=== PATIENT | female | born 1995 | race Caucasian/White ===

== ENCOUNTER 2021-05-31 09:05 | Outpatient (CLI) | payer BC, SELFPAY ==
[2021-05-31 10:16] LABS: hCG Titer Quant., Serum 8495 mIU/mL (1-3)
== END 2021-05-31 23:59 | disposition home or self-care (01) ==
PROVIDERS: Referring Provider Obstetrics & Gynecology; Visit Provider Obstetrics & Gynecology
DX: O20.9 Hemorrhage in early pregnancy, unspecified (principal); Z3A.00 Weeks of gestation of pregnancy not specified
CPT/HCPCS: 36415; 84702; 86850; 86900; 86901

== ENCOUNTER 2021-06-02 11:15 | Outpatient (CLI) | payer BC, SELFPAY ==
[2021-06-02 13:28] LABS: hCG Titer Quant., Serum 11227 mIU/mL (1-3)
== END 2021-06-02 23:59 | disposition home or self-care (01) ==
PROVIDERS: Referring Provider Obstetrics & Gynecology; Visit Provider Obstetrics & Gynecology
DX: O20.0 Threatened abortion (principal); Z3A.00 Weeks of gestation of pregnancy not specified
CPT/HCPCS: 36415; 84702

== ENCOUNTER 2021-06-06 15:51 | Outpatient (CLI) | payer BC, SELFPAY ==
[2021-06-09 03:07] LABS: Dilute Prothrombin Time (dPT) 39.6 sec (0.0-47.6); Dilute Russell Viper Venom 29.5 sec (0.0-47.0); PTT-LA 32.4 sec (0.0-51.9); Thrombin Time 15.7 sec (0.0-23.0); dPT Confirm Ratio 0.91 Ratio (0.00-1.34)
[2021-06-09 08:23] LABS: Anti-Cardiolipin Ab, IgA, Qn < 9 APL U/mL (0-11); Anti-Cardiolipin Ab, IgG, Qn < 9 GPL U/mL (0-14); Anti-Cardiolipin Ab, IgM, Qn < 9 MPL U/mL (0-12); Beta-2-Glycoprotein I IgA <9 (0-25); Beta-2-Glycoprotein I IgG <9 (0-20); Beta-2-Glycoprotein I IgM <9 (0-32); Interpretation Comment: (.)
== END 2021-06-06 23:59 | disposition home or self-care (01) ==
PROVIDERS: Referring Provider Obstetrics & Gynecology; Visit Provider Obstetrics & Gynecology
DX: N96 Recurrent pregnancy loss (principal)
CPT/HCPCS: 36415; 86146; 86147

== ENCOUNTER 2021-06-09 17:13 | Outpatient (CLI) | payer BC, SELFPAY ==
--- NOTE | 2021-06-09 17:24 | US_ITS ---
STUDY: FIRST TRIMESTER OBSTETRICAL ULTRASOUND REASON FOR EXAM: Female, 26 years old . Vaginal bleeding. LMP: 05/03/2021. TECHNIQUE: Transvaginal TECHNICAL QUALITY: Adequate. PRIOR ULTRASOUND: None. FINDINGS: There is visualization of a single gestational sac in a normal intrauterine position. The mean sac diameter (MSD) measures 1.5 cm, indicating an estimated gestational age (EGA) of 6 weeks, 2 days. The gestational sac shape is within normal limits. There is a visualized yolk sac. The yolk sac measures 0.44 cm. The placenta is non-visualized. There is visualization of a live embryo. The crown-rump length (CRL) measures 0.8 cm, indicating an estimated gestational age (EGA) of 6 weeks, 5 days. There is demonstrated cardiac activity with a heart rate of 112 bpm. The estimated gestation age (EGA) by LMP is 7 weeks, 2 days. The estimated date of delivery (CHENCHO) by LMP is 01/24/2022. The estimated gestation age (EGA) by US is 6 weeks, 3 days. The estimated date of delivery (CHENCHO) by US is 01/30/2022. The uterus measures 8.9 x 6.9 x 4.5 cm. Is an anechoic structure adjacent to the gestational sac measuring 1.1 x 0.7 x 0.8 cm. There is no demonstrated uterine fibroid. The cervix is closed. The right ovary measures 3.0 x 2.5 x 2.22 cm. There is a hypoechoic 1.5 x 1.8 x 1.6 cm mass. Question complex cyst. There is no visualized right adnexal mass or complex lesion. The left ovary measures 3.3 x 2.1 x 1.2. There is no left ovarian cyst. There is no visualized left adnexal mass or complex lesion. There is no fluid in the cul de sac. US/Transvaginal w/Preg US IMPRESSION: 1. Single live intrauterine at 6 weeks, 3 days. CHENCHO is 01/30/2022. 2. heart rate of 112 bpm. 3. A subchorionic hemorrhage. 4. Complex structure in the right ovary. Resting corpus luteum cyst. Electronically Signed: Wiliam Styles DO at 22:18 EDT Reading Location ID and State: [id number] Tel [phone], Service support ,
== END 2021-06-09 23:59 | disposition home or self-care (01) ==
LOC: US 17:22
PROVIDERS: Referring Provider Obstetrics & Gynecology; Visit Provider Obstetrics & Gynecology
DX: O20.0 Threatened abortion (principal); Z3A.00 Weeks of gestation of pregnancy not specified
CPT/HCPCS: 76817

== ENCOUNTER 2021-06-23 11:06 | Day surgery (SDC) | payer BC, SELFPAY ==
[2021-06-23] VITALS (7 sets, daily range): BP systolic 109–117; BP diastolic 55–71; PULSE 62–82; RESP 14–16; TEMP 36.2–37; O2SAT 94–97; BMI 33.3
--- NOTE | 2021-06-23 09:18 | HP.PCM_ITS ---
History and Physical Date of Admission: 06/23/21 [facility] [id number] [place] [address] [phone] OFFICE VISITDate of Service: 06/21/21 MR#:[id number]: MAITE OWENS [facility]:[id number]:[id number] Provider:Dr. 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 Is patient in pain?: No Allergies No Known Allergies Allergy (Verified 06/21/21 14:46) Medications docosahexaenoic acid 200 mg capsule mg PO 05/31/21 [History Confirmed 06/21/21] Last Menstral Period: 04/19/21 Zika: Zika virus screening: Negative : No PFSH PFSH Surgical History History of tonsillectomy [place] teeth extracted Social History household members: spouse current occupational status: employed current occupation: [employer] Smoking Status: Never smoker alcohol intake: current alcohol intake frequency: a few times a month details: none with substance use type: does not use what type of physical activity do you participate in: walking, running and bic ycling do you feel safe at home: Yes additional social history: - Werner Pregancy History 2 Elective abortions Hx Para 0 Spontaneous abortions 1 Hx # Term Pregnancies Ectopic pregnancies Hx # Pregnancies Multiple births # of living children Past Pregnancies Del. Date Name GA/Weeks Outcome Route Bth Weight Gen Labor Lgth Anesthesia Del Locatn Provider FOB Unknown 08/2020 SAB no intervention HPI NOB LMP 04/19/21 Details: MAITE OWENS is a 26 year old who presents for New OB visit. OB Visit CHENCHO Calculator Estimated Delivery Date Method Current WG Current Estimate 11/05/22 Ultrasound #1 8w 3d Other Estimates 01/24/22 LMP (Certain) 9w 0d Estimated Due Date: 08/18/20 Initial Weight: Not Recorded Date EGA Weight BP Urine Prot Glucose FHR FuHt Pres Dilation Effaced St Visit Note 06/21/21 8w 3d 197 lb 130/82 JV- no heart tones on ultrasound today. However, CRL measured 8 weeks 0days Menstrual History Last Menstral Period: 04/19/21 On hormonal BC at conception: No Antepartum Record Genetic Screening: Congenital Heart Defect: Other, Neural Tube Defect: Other, Hemoglobinopathy Or Carrier: Other, Cystic Fibrosis: Other, Chromosome Abnormality: Other, Robbie-Sachs: Other, Hemophilia: Other, Intellectual Disability/Autism: Other, Recurrent Loss/Stillbirth: Other, Other Structural Defect: Partner (cousin cleft lip;FOB missing pectoral muscle), Other Genetic Disease: Other and Maternal Metabolic Disorder: Other Infection History: Live with someone with TB or Exposed to TB: No, Patient or Partner has history of Genital Herpes: No, Rash or Viral illness since last mentrual period: No, Prior GBS-Infected child: No, History of STD: No, HIV Infection: No, History of Hepatitis: No, Recent travel outside of [place]: No, Concern for hepatitis exposure: No and Varicella immune: Yes (immune) Comments: covid vaccine complete Medical History Medical History: Positive: Pulmonary (e.g.,TB,Asthma) (asthma as child. No meds) and Operations/hospitalizations (tonsils) and Negative: Diabetes, Hypertension, Heart disease, Auto-immune disorder, Kidney disease/UTI, Neurologic/epilepsy, Psychiatric, Depression/ depression, Hepatitis/liver disease, Varicosities/phlebitis, Thyroid dysfunction, Trauma/domestic violence, History of blood transfusions, D (Rh) Sensitized, Seasonal allergies, Drug/latex allergies/reactions, Breast, Circle Beveler surgery, Anesthetic complications, History of abnormal pap, Uterine anomaly/choco, Infertility, Anti-retroviral treatment and Relevant family history ACOG First Trimester First Trimester: Discussed ROS Const Reports system reviewed and no additional complaints, except as documented, Reports fatigue and Denies fever(s) Eyes Reports system reviewed and no additional complaints, except as documented ENT Reports system reviewed and no additional complaints, except as documented Card Denies chest pain and Denies dyspnea Resp Reports system reviewed and no additional complaints, except as documented, Denies cough and Denies dyspnea GI Denies abdominal pain and Reports nausea Reports system reviewed and no additional complaints, except as documented Musc Reports system reviewed and no additional complaints, except as documented Skin/Breast Reports system reviewed and no additional complaints, except as documented Neuro Yes system reviewed and no additional complaints, except as documented Psych Reports system reviewed and no additional complaints, except as documented Endo Reports system reviewed and no additional complaints, except as documented and Reports fatigue Exam Const General: healthy appearing, comfortable and no acute distress Orientation: alert [facility] Head: normal to inspection, normocephalic and atraumatic Ears: hearing grossly normal bilaterally and external ears normal Nose: external nose normal and nares normal Mouth: oral mucosae normal Teeth and gingiva: dentition normal Eyes General: appearance normal, both eyes and all related structures Neck Neck: normal visual inspection, no lymphadenopathy and supple Thyroid: thyroid normal Resp Effort & Inspection: normal respiratory effort GI Inspection: normal to inspection Palpation: soft and no hepatosplenomegaly General: bladder normal to palpation External Female Exam: normal external appearance and normal appearance of the urethra Urethra: normal appearance of the urethra Speculum Exam - Vagina: normal appearance of the vagina and normal vaginal discharge Speculum Exam - Cervix: normal appearance of the cervix Bimanual Exam- Vagina & Uterus: normal bimanual exam, bladder normal to palpation, non-tender and other Bimanual Exam- Adnexa, other: non-tender Skin General: no rashes or lesions noted Neuro Motor: muscle tone normal throughout and no movement abnormalities noted Extrem General: normal to inspection and full ROM Supplemental Info ACOG book given and patient encouraged to read about nutrition, exercise, weight gain, and food avoidance in . Coding Level of Care Code Off vis,est,level 4 Diagnoses Supervision of high risk , antepartum O09.90 COVID-19 vaccine series completed Z92.29 Z34.90 Subchorionic hematoma O41.8X10; O46.8X1 Fetus number: single or unspecified fetus Trimester: first trimester Threatened O20.0 Missed O02.1 Assessment and Plan Assessment and Plan (1) Supervision of high risk , antepartum: Status: Acute Comment: Grav 2/0 CHENCHO 01/28/22 Spouse:Werner (2) COVID-19 vaccine series completed: Status: Acute (3) : Status: Acute Comment: Discussed carrier and genetic screen (4) Subchorionic hematoma: Status: Acute Qualifiers: Fetus number: single or unspecified fetus Trimester: first trimester Qualified Code(s): O41.8X10 - Other specified disorders of amniotic fluid and membranes, first trimester, not applicable or unspecified; O46.8X1 - Other antepartum hemorrhage, first trimester Comment: Complex 3 x 1 cm; 06/12 passed clot and brown spotting. (5) Threatened : Status: Acute Comment: pole with heartbeat seen but large clot present, repeat ultrasound with formal scan at end of week. APL panel ordered due to history of previous miscarriage also. Bleeding precautions reviewed. APL neg; 06/12 passed clot. Formal US with live IUP 6w5d (6) Missed : Status: Acute Plan - Dr. Ashley Greene DO: pt requesting D&C sunday with anora testing, ultrasound prior to d&C and APL panel at time of surgery. will submit request and call patient with details. UPDATE- I have seen the patient and performed any clinically relevant updates to the history and physical exam. Ashley Greene DO
--- NOTE | 2021-06-23 09:45 | US_ITS ---
STUDY: INTRAOPERATIVE ULTRASOUND GUIDANCE. REASON FOR EXAM: Female, 26 years old. NEEDED IN OR -- D and C -- 8wk missed TECHNIQUE: Intraoperative guidance provided for confirmation of retained products of conception. COMPARISON: None. FINDINGS: No significant residual is seen. US/Intraoperative Ultrasound IMPRESSION: Intraoperative guidance for confirmation of retained products of conception. Electronically Signed: Manjinder Villafana MD at 14:30 EDT ,
[2021-06-23] MEDS: Lactated Ringers 1,000 ML 15 ML IV (11:44)
[2021-06-23] MEDS: Doxycycline 100 MG CAPSULE PO (12:12)
[2021-06-23 12:19] LABS: Hematocrit 41.3 % (37-47); Hemoglobin 14.5 g/dL (12.0-15.0); Mean Corp Hgb Conc 35.1 g/dL (32-36); Mean Corpuscular Volume 88.2 fL (81-99); Mean Platelet Vol. 8.3 fl (6.2-12.0); Platelet Count 257 K/mm3 (150-450); RBC Distribution Width CV 12.7 % (11.6-14.6); RBC Distribution Width SD 41.1 fl (35.1-43.9); Red Blood Count 4.68 M/mm3 (4.2-5.4); White Blood Count 8.5 K/mm3 (4.4-11.0)
--- NOTE | 2021-06-23 12:30 | POC_PTH ---
PATIENT: MAITE OWENS LOC: [facility] [place] U#:[id number] AGE/SX: 26/F ROOM: RE06/23/[address]: Dr. Ashley Greene DO : 1995 BED: DIS: 06/23/2021 SPEC #: [id number] RECD: 06/23/21 13:37 STATUS: MARSHA GERARDYunier #: [id number] ERON: 06/23/21 12:[address]: Ashley Greene DEPT: SURGICAL PATHOLOGY RECD BY: Fabiola Nick ENTERED: 06/23/21 14:01 SP TYPE: PROD CONC OTHR DR: No Primary Care Phys Tissues: Product of conception, NOS Procedures: Surgery Specimen Level IV HEADER OPERATION: Dilation and curettage, suction, Anora and APL testing PRE-OP DIAGNOSIS: Missed TISSUE SUBMITTED: Products of conception MICROSCOPIC DIAGNOSIS Products of conception: [place]id[place], gestational endometrium and immature chorionic villi (products of conception). SJ:rg 06/24/2021 COMMENT Results of Anora studies will be reported as an addendum. MICROSCOPIC DESCRIPTION Slides are reviewed. GROSS DESCRIPTION Received fresh without formalin is one container labeled with the patient's name and designated products of conception. The specimen consists of multiple irregular fragments of pink-lyle soft tissue that in aggregate measure 5 x 6 x 1 cm. No tissue is identified. Skein Yarn Dyer Helper tissue is submitted in three cassettes. A portion of tissue is submitted for Anora studies. / SJ:rg 06/23/2021 TC:5 CPT: 39289
--- NOTE | 2021-06-23 13:27 | PCM.DC ---
Discharge Instructions Diet Discharge Diet: No restrictions Activity Discharge Activity: Return to Normal Activity, May Shower and May Take a Tub Bath (after 1 week) May resume sexual activity in: 1-2 weeks Weight Bearing Status: Weight bearing as tolerated Lifting Restrictions: none Dressing / Incision Call your doctor if you observe: Fever of 101 or Higher, Using more than 1 pad per hour, Shortness of breath and Uncontrolled pain Follow Up Care Please Follow Up With: Ashley Greene DO When: Call [phone] to schedule appointment. Test Results: Test results from this visit will be discussed in further detail at your follow-up appointment, if applicable. Discharge Plan Admission Primary Reason for Your Visit: suction dilation and curettage Attending Provider: Ashley Greene Primary Care Provider: Care Physician,Kayla Primary Discharge Orders/Prescriptions Prescriptions: New oxycodone-acetaminophen [Percocet] 5-325 mg tablet 1 tab PO Q6H PRN (Reason: pain) 3 Days Qty: 10 RF: 0 ibuprofen 600 mg tablet 600 mg PO Q6H PRN (Reason: pain (scale score 4-6)) 7 Days Qty: 28 RF: 0 Referrals / Follow Up: Care Physician,No Primary [Primary Care Provider] - Disposition Disposition (needs filled in before D/C Order can be placed): Home, Self Care
--- NOTE | 2021-06-23 13:31 | PCM.OP.BLANK ---
Problems Associated Problem List Diagnoses (1) Missed : Operative Report Date of Procedure: 06/23/21 Pre-operative diagnosis: missed at 8 weeks gestation Pot-operative diagnosis : same Procedure: suction dilation and curettage Surgeon: Dr. Ashley Greene DO Specimen: products of conception Anesthesia: MAC EBL: 50cc Complications: none Details of the procedure Patient was prepped and draped in a normal sterile fashion under MAC anesthesia. A weighted speculum was placed in the vagina and the anterior lip of the cervix was grasped with a single-tooth tenaculum. A Uterine sounded to 11 cm. An 11 suction device was used to remove the majority of the products of conception under ultrasound guidance. Next, a sharp Curettage was performed and all specimens were sent to pathology. All instruments were removed from the vagina and excellent hemostasis was noted. Patient was awoken and taken to recovery in stable condition. Multi Select Codes Urinary/Genital Urinary/Genital CPT Codes: 19624 Non-ob D&C (Suction dilation and curettage )
[2021-06-30 07:12] LABS: Pathology Specimen OB SEE PATHOLOGY REPORT
== END 2021-06-23 23:59 | disposition home or self-care (01) ==
LOC: SDC 11:07 → AC 11:10
PROVIDERS: Referring Provider Obstetrics & Gynecology; Visit Provider Obstetrics & Gynecology
PROC: (CPT 59820; principal; 2021-06-23 12:15)
DX: O02.1 Missed abortion (principal); J45.909 Unspecified asthma, uncomplicated; Z3A.01 Less than 8 weeks gestation of pregnancy
CPT/HCPCS: 59820; 01965; 76998; 85027; 86850; 86900; 86901; 88305; J7120; J2405

== ENCOUNTER 2021-06-28 18:24 | Outpatient (CLI) | payer OTHER, SELFPAY ==
--- NOTE | 2021-06-28 18:33 | US_ITS ---
STUDY: ULTRASOUND OF THE FEMALE PELVIS - COMPLETE REASON FOR EXAM: Female, 26 years old. RECENT MISCARRIAGE AND D AND C LMP: 10/17/2021. TECHNIQUE: Transvaginal TECHNICAL QUALITY: Adequate. COMPARISON: None. FINDINGS: The uterus is anteverted and is in a midline position. The uterus measures 8.4 cm x 5.4 cm x 4.2 cm. Normal uterine cervix. The endometrium measures 7 mm in thickness, and is hyperechoic. On the right side of the endometrium, there is a 1.6 x 1.4 cm x 1.3 cm heterogeneous mixed echogenicity. Small cysts are seen within the. This may represent residual products of conception. There is no demonstrated myometrial mass. I.U.D. - The patient does not have an I.U.D. The right ovary is visualized. The right ovary measures 4 cm x 2.7 cm x 1.6 cm. There is a 1.5 cm x 1.6 x 1.2 cm follicle. There is no visualized right adnexal mass or complex lesion. There is normal arterial and normal venous vascularity. The left ovary is visualized. The left ovary measures 1.9 cm x 1.9 cm x 1.1 cm. There is no left ovarian cyst or ovarian mass. There is no visualized left adnexal mass or complex lesion. There is normal arterial and normal venous vascularity. There is minimal fluid in the cul-de-sac. US/Transvaginal Non- IMPRESSION: 1.6 cm x 1.4 cm x 1.3 cm heterogeneous mixed echogenicity seen in the right side of the endometrium. This may represent a small amount of residual retained products of conception. Small follicle in the right ovary. Electronically Signed: Manjinder Villafana MD at 9:16 EDT ,
== END 2021-06-28 23:59 | disposition home or self-care (01) ==
LOC: OPUS 18:28
PROVIDERS: Visit Provider Obstetrics & Gynecology
DX: O20.0 Threatened abortion (principal); Z3A.00 Weeks of gestation of pregnancy not specified
CPT/HCPCS: 76830

== ENCOUNTER 2021-07-05 09:04 | Outpatient (CLI) | payer OTHER, SELFPAY ==
[2021-07-05 10:15] LABS: hCG Titer Quant., Serum 243 mIU/mL (1-3)
== END 2021-07-05 23:59 | disposition home or self-care (01) ==
LOC: PAVLAB 09:05
PROVIDERS: Referring Provider Obstetrics & Gynecology; Visit Provider Obstetrics & Gynecology
DX: O20.0 Threatened abortion (principal); Z3A.00 Weeks of gestation of pregnancy not specified
CPT/HCPCS: 36415; 84702

== ENCOUNTER 2021-07-13 08:12 | Outpatient (CLI) | payer OTHER, SELFPAY ==
[2021-07-13 08:53] LABS: hCG Titer Quant., Serum 40 mIU/mL (1-3)
[2021-07-13 08:59] LABS: Thyroid Stim Hormone (TSH) 1.57 uIU/mL (0.358-3.74)
== END 2021-07-13 23:59 | disposition home or self-care (01) ==
LOC: PAVLAB 08:13
PROVIDERS: Referring Provider Obstetrics & Gynecology; Visit Provider Obstetrics & Gynecology
DX: Z13.29 Encounter for screening for other suspected endocrine disorder (principal)
CPT/HCPCS: 36415; 84443; 84702

== ENCOUNTER → 2021-07-27 | Outpatient (CLI) | payer OTHER, SELFPAY ==
[2021-07-27 09:13] LABS: hCG Titer Quant., Serum 9 mIU/mL (1-3)
== END | disposition home or self-care (01) ==
LOC: PAVLAB 08:21
PROVIDERS: Referring Provider Obstetrics & Gynecology; Visit Provider Obstetrics & Gynecology
DX: O02.1 Missed abortion (principal)
CPT/HCPCS: 36415; 84702

== ENCOUNTER → 2021-10-03 | Outpatient (CLI) | payer OTHER, SELFPAY ==
[2021-10-03 13:36] LABS: hCG Titer Quant., Serum 33 mIU/mL (1-3)
== END | disposition home or self-care (01) ==
LOC: PAVLAB 12:41
PROVIDERS: Obstetrics & Gynecology; Referring Provider Nurse Practitioner Women's Health; Visit Provider Nurse Practitioner Women's Health
DX: O36.80X0 Pregnancy with inconclusive fetal viability, not applicable or unspecified (principal); Z3A.00 Weeks of gestation of pregnancy not specified
CPT/HCPCS: 36415; 84702

== ENCOUNTER → 2021-10-05 | Outpatient (CLI) | payer OTHER, SELFPAY ==
[2021-10-05 13:40] LABS: hCG Titer Quant., Serum 73 mIU/mL (1-3)
== END | disposition home or self-care (01) ==
LOC: PAVLAB 12:38
PROVIDERS: Referring Provider Obstetrics & Gynecology; Visit Provider Obstetrics & Gynecology
DX: O20.0 Threatened abortion (principal); Z3A.00 Weeks of gestation of pregnancy not specified
CPT/HCPCS: 36415; 84702

== ENCOUNTER → 2021-10-07 | Outpatient (CLI) | payer OTHER, SELFPAY ==
[2021-10-07 14:16] LABS: hCG Titer Quant., Serum 56 mIU/mL (1-3)
== END | disposition home or self-care (01) ==
LOC: LAB 13:18
PROVIDERS: Visit Provider Obstetrics & Gynecology
DX: O20.0 Threatened abortion (principal); Z3A.00 Weeks of gestation of pregnancy not specified
CPT/HCPCS: 36415; 84702

== ENCOUNTER → 2021-10-10 | Outpatient (CLI) | payer OTHER, SELFPAY ==
[2021-10-10 09:22] LABS: hCG Titer Quant., Serum 95 mIU/mL (1-3)
[2021-10-13 07:08] LABS: Dilute Russell Viper Venom 31.4 sec (0.0-47.0); PTT-LA 30.2 sec (0.0-51.9); Thrombin Time 17.8 sec (0.0-23.0); dPT Confirm Ratio 0.99 Ratio (0.00-1.34)
[2021-10-13 15:05] LABS: Anti-Cardiolipin Ab, IgA, Qn < 9 APL U/mL (0-11); Anti-Cardiolipin Ab, IgG, Qn < 9 GPL U/mL (0-14); Anti-Cardiolipin Ab, IgM, Qn < 9 MPL U/mL (0-12); Beta-2-Glycoprotein I IgA <9 (0-25); Beta-2-Glycoprotein I IgG <9 (0-20); Beta-2-Glycoprotein I IgM <9 (0-32); Interpretation Comment: (.)
== END | disposition home or self-care (01) ==
LOC: PAVLAB 08:21
PROVIDERS: Referring Provider Obstetrics & Gynecology; Visit Provider Obstetrics & Gynecology
DX: O20.0 Threatened abortion (principal); Z3A.00 Weeks of gestation of pregnancy not specified
CPT/HCPCS: 36415; 84702; 86146; 86147

== ENCOUNTER → 2021-11-18 | Outpatient (CLI) | payer OTHER, SELFPAY ==
[2021-11-18 16:46] LABS: hCG Titer Quant., Serum 178 mIU/mL (1-3)
== END | disposition home or self-care (01) ==
PROVIDERS: Visit Provider Obstetrics & Gynecology
DX: O20.0 Threatened abortion (principal); Z3A.00 Weeks of gestation of pregnancy not specified
CPT/HCPCS: 36415; 84702

== ENCOUNTER → 2021-11-21 | Outpatient (CLI) | payer OTHER, SELFPAY ==
[2021-11-21 07:56] LABS: hCG Titer Quant., Serum 123 mIU/mL (1-3)
== END | disposition home or self-care (01) ==
LOC: LAB 07:16
PROVIDERS: Referring Provider Obstetrics & Gynecology; Visit Provider Obstetrics & Gynecology
DX: O20.0 Threatened abortion (principal); Z3A.00 Weeks of gestation of pregnancy not specified
CPT/HCPCS: 36415; 84702

== ENCOUNTER 2021-11-23 16:27 | Emergency (ER) | payer OTHER, SELFPAY ==
[2021-11-23 16:29] VITALS: BP 108/73; PULSE 76; RESP 18; TEMP 36.6; O2SAT 94; BMI 32.9
--- NOTE | 2021-11-23 16:49 | ED.VIS.FEGU ---
HPI HPI - Female History of Present Illness Chief Complaint: Informant: patient Narrative Narrative: Patient presents for methotrexate treatment. This is a G4, P0 female. They have been following hormones as an outpatient. They were not rising and in fact starting to follow-up. Ultrasound was done that showed suspicion for ectopic. In light of her decreasing quant it was recommended she get methotrexate treatment. She has been following with her OB physician. She has not been having any pain fevers abdominal pain back pain lightheadedness or any other symptoms. There has been no vaginal bleeding. PFSH PFSH Medical History Alcohol use Asthma Non-smoker Home Medications prenat.vits,wilbur,[id number] 1 tab PO DAILY 10/14/21 [History Last Taken Unknown] Allergy/AdvReac Type Severity Reaction Status Date / Time codeine AdvReac HALLUCINATI Verified 11/23/21 16:38 ONS Surgical History History of tonsillectomy [place] teeth extracted Social History household members: spouse current occupational status: employed current occupation: [employer] Smoking Status: Never smoker alcohol intake: current alcohol intake frequency: a few times a month details: none with substance use type: does not use what type of physical activity do you participate in: walking, running and bicycling do you feel safe at home: Yes additional social history: - Werner VERONICA ROS ED Constitutional Constitutional ED: Denies chills or fever(s) ENT ENT ED: Denies sore throat Cardiovascular Cardiovascular: Denies chest pain or palpitations Respiratory/Chest Respiratory/Chest: Denies cough Gastrointestinal Gastrointestinal: Denies abdominal pain, nausea or vomiting Genitourinary Genitourinary ED: Reports other Details: See history of present illness peer ; Denies dysuria, hematuria or urinary frequency Musculoskeletal Musculoskeletal: Reports other Details: No back pain Integumentary Denies rash Neurologic Neurologic: Denies weakness Endocrine Endocrinology: Denies polydipsia or polyuria Hematologic/Lymphatic Hematologic/Lymphatic: Denies easy bleeding or easy bruising EXAM Physical Exam Const Vital Signs: 11/23/21 16:29 Temperature 98 F Temperature Source Temporal Pulse Rate 76 Respiratory Rate 18 Blood Pressure 108/73 Blood Pressure Mean 84 Pulse Ox 94 Oxygen Delivery Method Room Air Positive well nourished and well developed General Appearance ED: well developed HEENT Reports moist mucous membranes Eyes General Eye ED: Negative for scleral icterus Neck no lymphadenopathy Chest Wall inspection of chest normal Resp normal respiratory effort and clear to auscultation bilaterally Cardio regular rate and regular rhythm GI normal to inspection, nondistended, normoactive bowel sounds, soft to palpation, non-tender, non-distended and no masses Back/Spine no CVA tenderness Extremity normal to inspection General Extremety ED: Negative for edema or tenderness General Extremity: Negative for edema Neuro Sensorium / Orientation: alert Psych mental status grossly normal Skin no rashes or lesions noted General Skin Exam: Negative for jaundice MDM MDM MDM Narrative Medical decision making narrative: I discussed the case with Dr. Raman. She has been seeing and following this patient. She recommended methotrexate. We will arrange this. We will do a comprehensive metabolic panel to make sure there are not marked abnormalities. She has had normal coagulation studies which hint of no significant liver disease. I did talk with the patient about reasons to return. Just because we are treating with methotrexate it is not 100% successful. She could still have rupture. We went over the symptoms. Her OB will follow her up with quant's. Liver function test show no marked abnormalities. Electrolytes look normal. Per protocol, I gave 2 IM shots of the patient's methotrexate. We did half of the in each right upper outer quadrant of the buttocks. Alcohol cleanse, insertion drawback and injection. She tolerated well. Follow-up explained to the patient. Lab Data Labs: Laboratory Results - last 24 hr 11/23/21 17:15 Sodium 138 Potassium 3.8 Chloride 108 H Carbon Dioxide 24.0 Anion Gap 6 BUN 6 L Creatinine 0.70 Estim Creat Clear Calc 103.32 Est GFR (MDRD) Af Amer 128 Est GFR (MDRD) Non-Af 106 BUN/Creatinine Ratio 8.6 L Glucose 81 Calcium 9.1 Total Bilirubin 0.50 AST 10 L ALT 20 Alkaline Phosphatase 49 Total Protein 7.1 Albumin 3.8 Globulin 3.3 Albumin/Globulin Ratio 1.2 Discharge Plan Triage Chief Complaint: Other Complaint: Female C/O ED Provider: Saran Kaufman Dx/Rx/DC Orders Clinical Impression: Ectopic Instructions: ED Methotrexate for Ectopic ... Prescriptions: No Action prenat.vits,wilbur,[id number]-[id number] Tablet 1 tab PO DAILY Primary Care Provider: Care Physician,No Primary Referrals: Ashley Greene DO [Med Staff - Active Staff] - As Needed Care Physician,No Primary [Primary Care Provider] - Disposition Disposition: Home, Self Care Discharge Date/Time: 11/23/21 18:40
[2021-11-23 17:47] LABS: ALB/GLOB Ratio 1.2 RATIO (0.9-2.4); AST(SGOT) 10 U/L (15-37); Alanine Aminotransfer ALT/SGPT 20 U/L (13-56); Albumin, Serum 3.8 g/dL (3.2-5.0); Alkaline Phosphatase 49 U/L (45-117); Anion Gap 6 (5-15); BUN 6 mg/dL (7-18); BUN/Creat Ratio 8.6 RATIO (10-20); Calcium,Total 9.1 mg/dL (8.5-10.1); Chloride 108 mmol/L (98-107); EST Glomerular Filtration Rate 106 mL/min (>60); Est Glom Filt Rate - Afr Amer 128 mL/min (>60); Estimated Creatinine Clearance 103.32 ml/min; Globulin 3.3 g/dL (2.2-4.2); Glucose 81 mg/dL (74-106); Potassium 3.8 mmol/L (3.5-5.1); Protein, Total 7.1 g/dL (6.4-8.2); Sodium Level 138 mmol/L (136-145)
== END 2021-11-23 18:40 | disposition home or self-care (01) ==
PROVIDERS: Emergency Provider Emergency Medicine; Visit Provider Emergency Medicine
DX: O00.90 Unspecified ectopic pregnancy without intrauterine pregnancy (principal)
CPT/HCPCS: 80053; 99282; J9250

== ENCOUNTER → 2021-11-23 | Outpatient (CLI) | payer OTHER, SELFPAY ==
--- NOTE | 2021-11-23 14:30 | US_ITS ---
STUDY: FIRST TRIMESTER OBSTETRICAL ULTRASOUND REASON FOR EXAM: Female, 26 years old viability LMP: 10/02/2021. TECHNIQUE: Transabdominal and Transvaginal TECHNICAL QUALITY: Adequate. PRIOR ULTRASOUND: None. FINDINGS: There is no demonstrated intrauterine gestational sac. There is no demonstrated yolk sac. The placenta is non-visualized. There is no demonstrated embryo ( pole). The estimated gestation age (EGA) by LMP is 7 weeks, 3 days. The estimated date of delivery (CHENCHO) by LMP is 07/09/2022. The uterus measures 9.77 x 5.3 cm x 4 centimeters. No intrauterine gestation is seen. There is a 1.1 BETHANY by 1.47 x 2.5 cm solid nodular density in the right adnexa with fluid surrounding it. This may represent a possible ectopic . There is no demonstrated uterine fibroid. The cervix is closed. The right ovary measures 5 cm x 1.9 cm x 2.4 centimeters. There is no right ovarian cyst. There is no visualized right adnexal mass or complex lesion. The left ovary measures 3.1 cm x 2.5 cm x 1.6 cm. There is no left ovarian cyst. There is no visualized left adnexal mass or complex lesion. There is minimal fluid in the cul de sac. US/Transvaginal w/Preg US IMPRESSION: No intrauterine gestation is seen. Findings suggestive of a right-sided ectopic with fluid in the cul-de-sac. Correlation with serial beta hCGs recommended. Electronically Signed: Manjinder Villafana MD at 15:52 EDT ,
== END | disposition home or self-care (01) ==
PROVIDERS: Visit Provider Obstetrics & Gynecology
DX: O20.0 Threatened abortion (principal); Z3A.00 Weeks of gestation of pregnancy not specified
CPT/HCPCS: 76817

== ENCOUNTER → 2021-11-27 | Outpatient (CLI) | payer OTHER, SELFPAY ==
[2021-11-27 17:23] LABS: hCG Titer Quant., Serum 49 mIU/mL (1-3)
== END | disposition home or self-care (01) ==
LOC: LAB 16:01
PROVIDERS: Visit Provider Obstetrics & Gynecology
DX: O00.90 Unspecified ectopic pregnancy without intrauterine pregnancy (principal)
CPT/HCPCS: 36415; 84702

== ENCOUNTER → 2021-11-30 | Outpatient (CLI) | payer OTHER, SELFPAY ==
[2021-11-30 16:00] LABS: hCG Titer Quant., Serum 29 mIU/mL (1-3)
== END | disposition home or self-care (01) ==
LOC: PAVLAB 14:47
PROVIDERS: Referring Provider Obstetrics & Gynecology; Visit Provider Obstetrics & Gynecology
DX: O00.90 Unspecified ectopic pregnancy without intrauterine pregnancy (principal)
CPT/HCPCS: 36415; 84702

== ENCOUNTER → 2021-12-09 | Outpatient (CLI) | payer OTHER, SELFPAY ==
[2021-12-09 17:40] LABS: hCG Titer Quant., Serum 8 mIU/mL (1-3)
== END | disposition home or self-care (01) ==
PROVIDERS: Referring Provider Obstetrics & Gynecology; Visit Provider Obstetrics & Gynecology
DX: O09.90 Supervision of high risk pregnancy, unspecified, unspecified trimester (principal); Z3A.00 Weeks of gestation of pregnancy not specified
CPT/HCPCS: 36415; 84702

== ENCOUNTER → 2022-01-11 | Outpatient (CLI) | payer BC, SELFPAY ==
--- NOTE | 2022-01-11 12:13 | RAD_ITS ---
STUDY: HSG REASON FOR EXAM: Female, 26 years old. Fertility testing RADIATION DOSAGE (If Supplied By Facility): CTDIvol = ( ) mGy, DLP = ( ) mGycm. Individualized dose optimization techniques were used for this CT.? FLUOROSCOPY TIME (if supplied): ( 1:12 ) minutes/seconds TECHNIQUE: Procedure performed by Dr. Greene, fluoroscopy provided by Dr. Yoo COMPARISON: None. FINDINGS: Fluoroscopy provided as Dr. NOVAK performed an HSG. Contrast was injected into the uterus in a retrograde manner and there was fluoroscopic evaluation of the endometrial cavity and fallopian tubes. There is no suspicious soft tissue mass impinging upon the endometrial canal. The borders are smooth and normal in appearance. There is free flow of contrast through both fallopian tubes with spillage of contrast into the pelvis. No obstruction or stricture or mass lesion. RAD/Salpingogram IMPRESSION: Normal HSG. Electronically Signed: Milo Yoo MD at 13:35 EDT ,
--- NOTE | 2022-01-11 13:15 | OP.PCM_ITS ---
Operative Report Preop diagnosis: Infertility Postop diagnosis: Infertility, bilateral tubal patency Procedure: Hysterosalpingogram Surgeon: Ashley Greene Do Implantable devices: None Complications: None Findings: Bilateral tubal patency and normal uterine cavity Operative details: Patient was taken to the x-ray room and was placed on the x- ray table and was in the dorsal lithotomy position. Speculum was placed in the vagina and the cervix prepped with Betadine and the HSG catheter was easily introduced into the uterus and speculum removed. Radiologist was brought in and while pushing radiopaque dye into the uterus via the HSG catheter the radiologist took multiple images and views and confirmed bilateral tubal patency seen. No gross uterine filling defects or abnormalities were seen. All instruments removed from the vagina and the uterus without complication. Patient tolerated the procedure well. Multi Select Codes Urinary/Genital Urinary/Genital CPT Codes: 61073 HSG/SIS
== END | disposition home or self-care (01) ==
PROVIDERS: Referring Provider Obstetrics & Gynecology; Visit Provider Obstetrics & Gynecology
DX: Z31.41 Encounter for fertility testing (principal)
CPT/HCPCS: 58340; 74740; Q9967

== ENCOUNTER → 2022-04-04 | Outpatient (CLI) | payer BC, SELFPAY ==
[2022-04-04 17:41] LABS: hCG Titer Quant., Serum 390 mIU/mL (1-3)
== END | disposition home or self-care (01) ==
LOC: LAB 16:20
PROVIDERS: Referring Provider Nurse Practitioner Women's Health; Visit Provider Nurse Practitioner Women's Health
DX: N91.2 Amenorrhea, unspecified (principal)
CPT/HCPCS: 84702

== ENCOUNTER → 2022-04-06 | Outpatient (CLI) | payer BC, SELFPAY ==
[2022-04-06 18:02] LABS: hCG Titer Quant., Serum 956 mIU/mL (1-3)
== END | disposition home or self-care (01) ==
LOC: LAB 16:26
PROVIDERS: Visit Provider Obstetrics & Gynecology
DX: O20.0 Threatened abortion (principal); Z3A.00 Weeks of gestation of pregnancy not specified
CPT/HCPCS: 84702

== ENCOUNTER → 2022-04-24 | Outpatient (CLI) | payer BC, SELFPAY ==
--- NOTE | 2022-04-24 07:52 | US_ITS ---
STUDY: FIRST TRIMESTER OBSTETRICAL ULTRASOUND REASON FOR EXAM: Female, 27 years old viability LMP: 03/03/2022. TECHNIQUE: Transvaginal TECHNICAL QUALITY: Adequate. PRIOR ULTRASOUND: None. FINDINGS: There is visualization of a single gestational sac in a normal intrauterine position. The mean sac diameter (MSD) measures 2.8 cm, indicating an estimated gestational age (EGA) of 7 weeks, 6 days. The gestational sac shape is within normal limits. There is a visualized yolk sac. The yolk sac measures 4 mm. The placenta is non-visualized. There is visualization of a live embryo. The crown-rump length (CRL) measures 8 mm, indicating an estimated gestational age (EGA) of 6 weeks, 6 days. There is demonstrated cardiac activity with a heart rate of 140 bpm. The estimated gestation age (EGA) by LMP is 7 weeks, 3 days. The estimated date of delivery (CHENCHO) by LMP is 12/08/2022. The estimated gestation age (EGA) by US is 7 weeks, 3 days. The estimated date of delivery (CHENCHO) by US is 12/08/2022. The uterus measures 9.8 cm x 6.8 cm x 5.2 cm. There is no demonstrated uterine fibroid. The cervix is closed. The right ovary measures 4 cm x 2. cm x 1.3 cm. There is no right ovarian cyst. There is no visualized right adnexal mass or complex lesion. The left ovary measures was not visualized due to overlying bowel gas.. There is minimal fluid in the cul de sac. US/Transvaginal w/Preg US IMPRESSION: Single live intrauterine gestation with a mean gestational age of 7 weeks and 3 days. Minimal amount of free fluid is seen in the cul-de-sac. Electronically Signed: Manjinder Villafana MD at 15:20 EST ,
== END | disposition home or self-care (01) ==
LOC: US 07:50
PROVIDERS: Visit Provider Obstetrics & Gynecology
DX: Z34.90 Encounter for supervision of normal pregnancy, unspecified, unspecified trimester (principal)
CPT/HCPCS: 76817

== ENCOUNTER → 2022-05-09 | Outpatient (CLI) | payer BC, SELFPAY ==
[2022-05-12 11:09] LABS: Chlamydia By Nucleic Acid AMP Negative (Negative)
[2022-05-12 17:20] LABS: Gonococcus By Nucleic Acid AMP Negative (Negative)
== END | disposition home or self-care (01) ==
PROVIDERS: Visit Provider Obstetrics & Gynecology
DX: Z34.90 Encounter for supervision of normal pregnancy, unspecified, unspecified trimester (principal)
CPT/HCPCS: 87086; 87088; 87491; 87591

== ENCOUNTER 2022-05-25 13:50 | Outpatient (CLI) | payer BC, SELFPAY ==
[2022-05-25 14:18] LABS: Absolute Lymphocyte Count 2.94 X10^3/uL (0.83-4.51); Absolute Neutrophil Count 7.2 X10^3/uL (2.0-7.7); Basophil# 0.05 X10^3/uL; Basophil% 0.5 % (0-1); Eosinophil# 0.08 X10^3/uL; Eosinophils% 0.7 % (0-5); Hematocrit 41.7 % (37-47); Hemoglobin 14.4 g/dL (12.0-15.0); Lymphocyte # 2.94 X10^3/ul (0.83-4.51); Lymphocyte % 26.8 % (19-41); Mean Corp Hgb Conc 34.5 g/dL (32-36); Mean Corpuscular Hgb 30.4 pg (27.0-32.0); Mean Platelet Vol. 8.3 fl (6.2-12.0); Monocyte# 0.66 X10^3/uL; NRBC Flagged by Analyzer 0 % (0-5); Neutrophil # 7.22 X10^3/uL (2.7-7.7); Neutrophil % 65.6 % (47-70); Platelet Count 270 K/mm3 (150-450); RBC Distribution Width CV 12.6 % (11.6-14.6); RBC Distribution Width SD 40.9 fl (35.1-43.9); Red Blood Count 4.74 M/mm3 (4.2-5.4)
[2022-05-25 15:01] LABS: Glucose Challenge Gest 1H 50g 111 mg/dL (70-140)
[2022-05-25 16:04] LABS: HIV - WCH Non-Reactive (Nonreactive); Hepatitis B Surface Antigen Non-Reactive (Nonreactive); Hepatitis C Antibody Non-Reactive (Nonreactive); Rubella IgG Reactive (Nonreactive); Syphilis Antibodies Non-reactive
== END 2022-05-25 23:59 | disposition home or self-care (01) ==
LOC: PAVLAB 13:51
PROVIDERS: Referring Provider Obstetrics & Gynecology; Visit Provider Obstetrics & Gynecology
DX: O09.90 Supervision of high risk pregnancy, unspecified, unspecified trimester (principal); O99.210 Obesity complicating pregnancy, unspecified trimester; Z31.41 Encounter for fertility testing
CPT/HCPCS: 36415; 82950; 84443; 85025; 86703; 86762; 86780; 86803; 86850; 86900; 86901; 87340

== ENCOUNTER → 2022-05-29 | Outpatient (CLI) | payer BC, SELFPAY ==
[2022-05-29 09:19] LABS: NATERA MAILED SPECIMEN
== END | disposition home or self-care (01) ==
LOC: PAVLAB 08:09
PROVIDERS: Referring Provider Obstetrics & Gynecology; Visit Provider Obstetrics & Gynecology
DX: Z34.81 Encounter for supervision of other normal pregnancy, first trimester (principal)
CPT/HCPCS: 36415

== ENCOUNTER → 2022-09-15 | Outpatient (CLI) | payer BC, SELFPAY ==
[2022-09-15 11:44] LABS: Absolute Lymphocyte Count 1.95 X10^3/uL (0.83-4.51); Absolute Neutrophil Count 7.9 X10^3/uL (2.0-7.7); Basophil# 0.03 X10^3/uL; Basophil% 0.3 % (0-1); Eosinophil# 0.06 X10^3/uL; Eosinophils% 0.6 % (0-5); Hematocrit 39.3 % (37-47); Hemoglobin 12.8 g/dL (12.0-15.0); Lymphocyte # 1.95 X10^3/ul (0.83-4.51); Lymphocyte % 18.5 % (19-41); Mean Corp Hgb Conc 32.6 g/dL (32-36); Mean Corpuscular Hgb 29.2 pg (27.0-32.0); Mean Corpuscular Volume 89.5 fL (81-99); Monocyte# 0.58 X10^3/uL; Monocyte% 5.5 % (0-10); NRBC Flagged by Analyzer 0 % (0-5); Neutrophil # 7.86 X10^3/uL (2.7-7.7); Neutrophil % 74.5 % (47-70); POSITIVE COUNT YES; RBC Distribution Width CV 13.1 % (11.6-14.6); RBC Distribution Width SD 42.6 fl (35.1-43.9); Red Blood Count 4.39 M/mm3 (4.2-5.4); White Blood Count 10.5 K/mm3 (4.4-11.0)
[2022-09-15 11:59] LABS: Differential Indicated SCAN CRITERIA MET
[2022-09-15 12:00] LABS: Differential Comment SCANNED; Platelet Estimate ADEQUATE (ADEQ)
[2022-09-15 12:44] LABS: Glucose Challenge Gest 1H 50g 142 mg/dL (70-140)
[2022-09-15 13:14] LABS: HIV - WCH Non-Reactive (Nonreactive); Syphilis Antibodies Non-reactive
--- NOTE | 2022-09-15 16:54 | US_ITS ---
EXAM: US , LIMITED CLINICAL INDICATION: placental location TECHNIQUE: Real-time limited ultrasound of the maternal uterus with image documentation. COMPARISON: No relevant prior studies available. FINDINGS: FETUS: There is an intrauterine gestation. GESTATIONAL AGE: Gestational age 24 days. CHENCHO: CHENCHO 12/08/2022. EFW: Estimated weight is 1157 g 37th. BPD: Biparietal diameter 6.9 cm age 27 weeks 6 days, 34th percentile. HC: Head circumference is 26.3 cm age 25 days, 39th percentile. AC: Abdominal circumference is 24 cm age 20. FL: Femur length is 5.1 cm age 27 2 days, 20th percentile. POSITION: The fetus is in cephalic position. HEART RATE: heart rate is 142 bpm. PLACENTA: Placenta is 5.6 cm from the cervical os. AMNIOTIC FLUID: LISSET is 16.6 cm. IMPRESSION: Intrauterine gestation with an average ultrasound age of 28 weeks 1 day and ultrasound estimated due date of 12/07/2022. Electronically Signed: Chong Taylor MD at 0:10 EDT , rScriptor Unformatted Report Format: Options: n 2f 2i act cap dr ag wm wcta sl lj Gender: Female Age: 27 years Exam: US OB Transvaginal Comparison: History: placental location Contrast: EXAM: US , LIMITED CLINICAL INDICATION: placental location TECHNIQUE: Real-time limited ultrasound of the maternal uterus with image documentation. COMPARISON: No relevant prior studies available. FINDINGS: FETUS: There is an intrauterine gestation. GESTATIONAL AGE: Gestational age 24 days. CHENCHO: CHENCHO 12/08/2022. EFW: Estimated weight is 1157 g 37th. BPD: Biparietal diameter 6.9 cm age 27 weeks 6 days, 34th percentile. HC: Head circumference is 26.3 cm age 25 days, 39th percentile. AC: Abdominal circumference is 24 cm age 20. FL: Femur length is 5.1 cm age 27 2 days, 20th percentile. POSITION: The fetus is in cephalic position. HEART RATE: heart rate is 142 bpm. PLACENTA: Placenta is 5.6 cm from the cervical os. AMNIOTIC FLUID: LISSET is 16.6 cm. US/OB Limited With Biometrics
== END | disposition home or self-care (01) ==
LOC: US 11:21
PROVIDERS: Obstetrics & Gynecology; Referring Provider Obstetrics & Gynecology; Visit Provider Obstetrics & Gynecology
DX: O09.90 Supervision of high risk pregnancy, unspecified, unspecified trimester (principal); Z3A.00 Weeks of gestation of pregnancy not specified
CPT/HCPCS: 36415; 76816; 76817; 82950; 85025; 86703; 86780

== ENCOUNTER → 2022-09-29 | Outpatient (CLI) | payer BC, SELFPAY ==
[2022-09-29 07:51] LABS: Glucose GTT-Gestation. Fasting 89 mg/dL (<105)
[2022-09-29 09:12] LABS: Glucose GTT-Gestational 1 Hr 156 mg/dL (<190)
[2022-09-29 10:25] LABS: Glucose GTT-Gestational 2 Hr 128 mg/dL (<165)
[2022-09-29 10:42] LABS: Glucose GTT-Gestational 3 Hr 129 L (<145)
== END | disposition home or self-care (01) ==
LOC: LAB 07:05
PROVIDERS: Referring Provider Obstetrics & Gynecology; Visit Provider Obstetrics & Gynecology
DX: Z13.1 Encounter for screening for diabetes mellitus (principal)
CPT/HCPCS: 36415; 82951; 82952

== ENCOUNTER → 2022-11-10 | Outpatient (CLI) | payer BC, SELFPAY | END | disposition home or self-care (01) | LOC: LABSPEC 11:53 | PROVIDERS: Referring Provider Obstetrics & Gynecology; Visit Provider Obstetrics & Gynecology | DX: Z34.90 Encounter for supervision of normal pregnancy, unspecified, unspecified trimester (principal) | CPT/HCPCS: 87081 ==

== ENCOUNTER 2022-12-01 14:10 | Inpatient (IN) | payer BC, SELFPAY ==
[2022-12-01] VITALS (60 sets, daily range): BP systolic 113–141; BP diastolic 62–85; PULSE 75–215; TEMP 36.4–37.1; O2SAT 81–96; BMI 37.1
[2022-12-01] MEDS: Lactated Ringers 1,000 ML 50 ML IV (15:25)
[2022-12-01] MEDS: LACTATED RINGERS 500 ML 999 ML IV ×2 (15:25→22:06)
[2022-12-01 15:42] LABS: Absolute Lymphocyte Count 2.73 X10^3/uL (0.83-4.51); Absolute Neutrophil Count 10.3 X10^3/uL (2.0-7.7); Basophil# 0.05 X10^3/uL; Basophil% 0.4 % (0-1); Eosinophil# 0.04 X10^3/uL; Eosinophils% 0.3 % (0-5); Hematocrit 45.4 % (37-47); Hemoglobin 15.1 g/dL (12.0-15.0); Lymphocyte # 2.73 X10^3/ul (0.83-4.51); Lymphocyte % 19.4 % (19-41); Mean Corp Hgb Conc 33.3 g/dL (32-36); Mean Corpuscular Hgb 28.8 pg (27.0-32.0); Mean Corpuscular Volume 86.5 fL (81-99); Mean Platelet Vol. 9.5 fl (6.2-12.0); Monocyte# 0.85 X10^3/uL; NRBC Flagged by Analyzer 0 % (0-5); Neutrophil # 10.31 X10^3/uL (2.7-7.7); Neutrophil % 73.3 % (47-70); Platelet Count 280 K/mm3 (150-450); RBC Distribution Width CV 16.4 % (11.6-14.6); RBC Distribution Width SD 51.4 fl (35.1-43.9); Red Blood Count 5.25 M/mm3 (4.2-5.4); White Blood Count 14.1 K/mm3 (4.4-11.0)
--- NOTE | 2022-12-01 15:57 | HP.PCM.OB_ITS ---
HPI - General General Date of Admission: 12/01/22 HPI Narrative MAITE OWENS, is a 27 y/o @ 39 weeks who presents to L&D with painful contractions and just recently SROM. She is requesting an epidural. Maternal Data Information CHENCHO Calculator Estimated Delivery Date Method Current WG Current Estimate 12/08/22 LMP (Certain) 39w 0d Other Estimates 12/07/22 Ultrasound #2 39w 1d PFSH PFSH Medical History Abnormal glucose Alcohol use Asthma COVID-19 vaccine series completed Ectopic Missed Non-smoker Subchorionic hematoma Supervision of high risk , antepartum Threatened Home Medications multivitamin no.47-iron fum 27 mg-folate no.1 1 mg-dha 300 mg capsule (PNV-DHA) cap PO 05/01/22 [History Last Taken Unknown] Allergy/AdvReac Type Severity Reaction Status Date / Time codeine AdvReac HALLUCINATI Verified 12/01/22 11:37 ONS Surgical History History of tonsillectomy Status post dilation and curettage [place] teeth extracted Social History adopted: No household members: spouse housing: house current occupational status: employed current occupation: [employer] current occupational exposures/hazards: No pets and animals: Yes pets and animals: dog(s) history of recent travel: Yes ([place] in March) out of state: Yes sexually active: Yes Smoking Status: Never smoker alcohol intake: current alcohol intake frequency: a few times a month details: none with substance use type: does not use well-balanced diet: daily or most days caffeine: No eating out: 1-3 times/week during the past year weight has: remained stable what type of physical activity do you participate in: walking and bicycling frequency: 1-2 times per week duration: 30-45 minutes/day nini/moravian: Taoism seatbelt use: always do you feel safe at home: Yes additional social history: - Werner History 4 Elective abortions Hx Para 0 Spontaneous abortions 3 Hx # Term Pregnancies Ectopic pregnancies Hx # Pregnancies Multiple births # of living children 0 Past Pregnancies Del. Date Name GA/Weeks Outcome Route Bth Weight Gen Labor Lgth Anesthesia Del Locatn Provider FOB Unknown 08/2020 SAB no intervention Unknown 06/2021 miscarriage 7 weeks Unknown 10/2021 ectopic Delivery Date: Last Updated by: Renea Mo D&Mireya Visit Details Expected Delivery Route/Plan Labor Preferences- CB/BF classes: done labor support person: [] labor intervention preferences: [] pain management options preferred: epidural cut cord/dad catch: [] : wants PP control planned: [] discussed possible routes of delivery and associated risks: [] special requests: [] Plans Covid status: discussed Flu vaccine: discussed Tdap vaccine: discussed Rhogam: LARC form signed: done movement and labor precautions reviewed. Problem list reviewed and updated with the most current plan of care details and appropriate orders placed. Relevant counseling for the gestational age provided. Continue routine care and follow up unless otherwise noted in visit notes/problem list details OB Flowsheet Initial Weight: Not Recorded Date -?-?-?-?-?-?-?-?-?-?-?-?- EGA Weight BP Urine Prot -?-?-?-?-?-?-?-?-?-?-?-?- Glucose FHR FuHt Pres Dilation -?-?-?-?-?-?-?-?-?-?-?-?- Effaced St Visit Note 05/09/22 -?-?-?-?-?-?-?-?-?-?-?-?- 9w 4d 200 lb 8 oz 132/76 -?-?-?-?-?-?-?-?-?-?-?-?- 156 -?-?-?-?-?-?-?-?-?-?-?-?- JV- Single live IUP measuring 9 weeks 5 days and consistent with LMP. desires NIPT. 05/25/22 -?-?-?-?-?-?-?-?-?-?-?-?- 11w 6d 201 lb 4 oz 117/71 Nega tive -?-?-?-?-?-?-?-?-?-?-?-?- Negative 150 -?-?-?-?-?-?-?-?-?-?-?-?- JV- pt here toda y to confirm still viable due to h/o frequent miscarriages. + FHT and movement on portable us. 06/06/22 -?-?-?-?-?-?-?-?-?-?-?-?- 13w 4d 203 lb 2 oz 112/72 Nega tive -?-?-?-?-?-?-?-?-?-?-?-?- Negative 152 0 -?-?-?-?-?-?-?-?-?-?-?-?- MH-work in for p ink spotting this AM. IC 2 days ago. FHT seen on brief US and also audible on doppler. Small brown DC on exam. Reassured 07/07/22 -?-?-?-?-?-?-?-?-?-?-?-?- 18w 0d 204 lb 6 oz 107/72 Nega tive -?-?-?-?-?-?-?-?-?-?-?-?- Negative 145 -?-?-?-?-?-?-?-?-?-?-?-?- JV- starting to feel some movements on the right side of lower abdomen when she wakes up in the am. no complaints. has anatomy scheuled for 07/25/22 08/03/22 -?-?-?-?-?-?-?-?-?-?-?-?- 21w 6d 207 lb 4 oz 107/70 -?-?-?-?-?-?-?-?-?-?-?-?- 145 -?-?-?-?-?-?-?-?-?-?-?-?- JV- good m ovement. Has low lying placenta 1.2 cm from cx. rpt at 28 weeks. glucola also at 28 weeks. JV- pt complains of frequent nose bleedings. stop asa. good movement. Has low lying placenta 1.2 cm from cx. rpt at 28 weeks. glucola also at 28 weeks. 09/01/22 -?-?-?--?-?-?-?-?-?-?-?-?- 26w 0d 211 lb 2 oz 105/63 Nega tive -?-?-?-?-?-?-?-?-?-?-?-?- Negative 145 -?-?-?-?-?-?-?-?-?-?-?-?- SM- no vb lof go od fm no reuglar ctx 09/29/22 -?-?-?-?-?-?-?-?-?-?-?-?- 30w 0d 214 lb 2 oz 108/74 Nega tive -?-?-?-?-?-?-?-?-?-?-?-?- Negative 134 31 -?-?-?--?-?-?-?-?-?-?-?-?- JV- passed 3 hr. having some pain with intercourse. encouraged to avoid if painful. will be doing her birthing class this weekend. 10/13/22 -?-?-?-?-?-?-?-?-?-?-?--?- 32w 0d 213 lb 100/60 Negative -?-?-?-?-?-?-?-?-?-?-?-?- Negative 135 33 -?-?-?-?-?-?-?-?-?-?-?-?- KW-+fm. No vb/lo f/ctx. Larc done. no concerns today 10/25/22 -?-?-?-?-?-?-?-?-?-?-?-?- 33w 5d 218 lb 4 oz 113/78 Nega tive -?-?-?-?-?-?-?-?-?-?-?-?- Negative 130 33.5 -?-?-?-?-?-?-?-?-?-?-?-?- LC- no vb/ctx/lo f. good fm. no concerns. 11/10/22 -?-?-?-?-?-?-?-?-?-?-?-?- 36w 0d 220 lb 9.6 oz 113/71 113/71 Negative -?-?--?-?-?-?-?-?-?-?-?-?- Negative 163 36 Cephalic 0 -?-?-?-?-?-?-?-?-?-?-?-?- -3 JV- no l of, vaginal bleeding, or dec fm. gbs today. 11/17/22 -?-?-?-?-?--?-?-?-?-?-?-?- 37w 0d 218 lb 4 oz 107/70 -?-?-?-?-?-?-?-?-?-?-?-?- 140 37 Cephalic -?-?-?-?-?-?-?-?-?-?-?-?- SM- no vb lof go od fm n oregular ctx 11/24/22 -?-?-?-?-?-?-?-?-?-?-?-?- 38w 0d 221 lb 114/74 -?-?-?-?-?-?-?-?-?-?-?-?- 140 38 Cephalic 0.5 -?-?-?-?-?-?-?-?-?-?-?-?- SM- no vb lof go od fm no regular ctx ROS Constitutional Constitutional: Denies change in weight, fatigue, fever(s), headache(s), poor appetite or weakness Eyes Eyes: Denies blurry vision, change in vision, seeing flashes or spots in vision ENT HEENT: Denies dizziness, headache(s), loss taste/smell or sore throat Cardiovascular Cardiovascular: Denies chest pain, dizziness, dyspnea, irregular heart rhythm, leg edema, palpitations, rapid heart rate or vomiting Respiratory/Chest Respiratory/Chest: Denies chest tightness, cough, dyspnea or breast pain Gastrointestinal Gastrointestinal: Denies abdominal pain, anorexia, constipation, cramping, diarrhea, hemorrhoids, vomiting or weight changes Genitourinary Genitourinary: Denies dysuria, flank pain, genital lesions, genital pain, urinary frequency or urinary urgency Musculoskeletal Musculoskeletal: Denies back pain, difficulty walking, joint pain, limited range of motion, muscle cramps or numbness Integumentary Integumentary: Denies lesions or unusual bruising Neurologic Neurologic: Denies abnormal movements, abnormal speech, dizziness, numbness, seizure-like activity or syncope Psychiatric Psychiatric: Denies anxiety, behavioral changes, change in appetite, change in libido, cognitive impairment, confusion, depression, difficulty concentrating, hallucinations or suicidal thoughts Endocrine Endocrinology: Denies excessive sweating, polydipsia or polyuria Hematologic/Lymphatic Hematologic/Lymphatic: Denies easy bleeding, easy bruising or lymphadenopathy Allergic/Immunologic Allergic/Immunologic: Denies itchy eyes, lip swelling, seasonal rhinorrhea, rhinitis, throat swelling, tongue swelling, eczemia, wheezing or asthma Vital Signs Vital Signs Vital Signs: 12/01/22 11:36 12/01/22 11:36 12/01/22 11:39 Pulse Rate 126 H 118 H Blood Pressure 141/81 H BP Systolic 141 BP Diastolic 81 Pulse Ox 12/01/22 11:39 12/01/22 13:08 12/01/22 13:08 Pulse Rate 154 H Blood Pressure BP Systolic BP Diastolic Pulse Ox 93 92 12/01/22 13:09 12/01/22 13:09 12/01/22 13:10 Pulse Rate 94 Blood Pressure 120/72 BP Systolic 120 BP Diastolic 72 Pulse Ox 91 12/01/22 13:10 12/01/22 13:14 12/01/22 13:14 Pulse Rate 97 97 Blood Pressure BP Systolic BP Diastolic Pulse Ox 94 12/01/22 13:19 12/01/22 13:19 12/01/22 13:24 Pulse Rate 87 103 H Blood Pressure BP Systolic BP Diastolic Pulse Ox 93 12/01/22 13:24 12/01/22 13:29 12/01/22 13:29 Pulse Rate 105 H Blood Pressure BP Systolic BP Diastolic Pulse Ox 92 91 12/01/22 13:34 12/01/22 13:34 12/01/22 13:39 Pulse Rate 83 88 Blood Pressure BP Systolic BP Diastolic Pulse Ox 94 12/01/22 13:39 12/01/22 13:44 12/01/22 13:44 Pulse Rate 75 Blood Pressure BP Systolic BP Diastolic Pulse Ox 94 94 12/01/22 13:49 12/01/22 13:49 12/01/22 13:54 Pulse Rate 90 88 Blood Pressure BP Systolic BP Diastolic Pulse Ox 94 12/01/22 13:54 12/01/22 13:59 12/01/22 13:59 Pulse Rate 82 Blood Pressure BP Systolic BP Diastolic Pulse Ox 94 94 12/01/22 14:04 12/01/22 14:04 12/01/22 14:09 Pulse Rate 84 93 Blood Pressure BP Systolic BP Diastolic Pulse Ox 94 12/01/22 14:09 12/01/22 14:14 12/01/22 14:14 Pulse Rate 89 Blood Pressure BP Systolic BP Diastolic Pulse Ox 94 95 12/01/22 14:19 12/01/22 14:19 12/01/22 14:24 Pulse Rate 89 88 Blood Pressure BP Systolic BP Diastolic Pulse Ox 94 12/01/22 14:24 12/01/22 14:29 12/01/22 14:29 Pulse Rate 88 Blood Pressure BP Systolic BP Diastolic Pulse Ox 94 94 12/01/22 14:34 12/01/22 14:34 12/01/22 14:39 Pulse Rate 80 82 Blood Pressure BP Systolic BP Diastolic Pulse Ox 94 12/01/22 14:39 12/01/22 15:55 12/01/22 15:55 Pulse Rate 92 Blood Pressure BP Systolic BP Diastolic Pulse Ox 92 95 Weight Weight: 216 lb 9.6 oz Body Mass Index (BMI) 37.1 Physical Exam Const alert, oriented x3, no apparent distress and healthy appearing General Appearance: cooperative; Negative for anxious HEENT normocephalic Face and Sinus: normal facial exam Eyes EOMs intact bilaterally and no scleral icterus General Eye: normal appearance of both eyes Neck full ROM and supple Lymph Lymphatic: no lymphadenopathy noted Chest Chest: abnormal inspection of the chest Resp normal respiratory effort Effort and Inspection: able to speak in complete sentences Cardio regular rate GI soft to palpation and non-tender Inspection: gravid Palpation: soft; Negative for tender external exam normal Amniotic Fluid: ROM+plus Back/Spine no CVA tenderness Extremity normal to inspection, full ROM and no clubbing, cyanosis or edema General Extremity: Negative for calf tenderness or edema Skin Lesions: no lesions Rashes: no rashes Psych mental status grossly normal Labs Labs Labs: Blood Type O POSITIVE Antibody Screen NEGATIVE Hct 45.4 % (37-47) Hgb 15.1 g/dL (12.0-15.0) H Obstetrics US Syphilis Total Ab Non-reactive Rubella IgG Antibody Reactive (Nonreactive) Hep Bs Antigen Non-Reactive (Nonreactive) Chlamydia DNA (ADI) Negative (Negative) Neisseria gonorrhoeae DNA (ADI) Negative (Negative) HIV 1&2 Antibody Non-Reactive (Nonreactive) Glucose 1 Hr 50 gm 142 mg/dL (70-140) H Miscellaneous Test Assessment & Plan (1) Abnormal glucose: COMMENT: passed 3 Hr. GTT (2) Obesity affecting : COMMENT: nl 1 tm GCT. encouraged healthy weight gain (3) Supervision of high risk , antepartum: COMMENT: [id number], CHENCHO 12/10/22, boy, unsure name Werner (4) : QUALIFIERS: Weeks of gestation: 38 weeks Qualified Code(s): Z3A.38 - 38 weeks gestation of COMMENT: GBS neg, NIPT low risk, declined carrier testing, declined afp screen, nl anatomy. PLAN: Plan Patient presents IAL, plan expectant management for , pitocin/AROM PRN if needed. Pain management: plans epidural. GBS negative . Management of any complications: gestational diabetes - diet controlled I have reviewed the [facility] and made any clinically relevant updates.
[2022-12-01] MEDS: fentaNYL-bupivacaine (epidural) 100 ML BAG EPIDURAL ×2 (16:03→20:26)
[2022-12-01 16:53] LABS: Syphilis Antibodies Non-reactive
[2022-12-01] MEDS: Oxytocin 15 Units/NS 250ml 15 UNITS/250 ML IV.SOLN 2 UNITS IV (19:14)
[2022-12-01] MEDS: Lactated Ringers 1,000 ML 200 ML IV (20:49)
[2022-12-01] MEDS: Amnioinfusion- 0.9% NS 1,000 ML IV.SOLN. 1000 ML INTRA-UTER (22:13)
--- NOTE | 2022-12-01 22:47 | NURSING ---
Forte cathter inserted at 1710 per dayshift RN. Urinary catheter insertion intervention not completed on worklist by previous RN.
[2022-12-02] VITALS (33 sets, daily range): BP systolic 103–128; BP diastolic 59–82; PULSE 83–108; RESP 16–18; TEMP 36.4–37.6; O2SAT 91–97
[2022-12-02] MEDS: fentaNYL-bupivacaine (epidural) 100 ML BAG EPIDURAL ×2 (01:46→06:47)
[2022-12-02] MEDS: Lactated Ringers 1,000 ML 200 ML IV ×2 (02:06→08:06)
[2022-12-02] MEDS: Amnioinfusion- 0.9% NS 1,000 ML IV.SOLN. 1000 ML INTRA-UTER (02:10)
[2022-12-02] MEDS: LACTATED RINGERS 500 ML 999 ML IV (02:55)
[2022-12-02] MEDS: Ondansetron 4 MG/2 ML Vial IV (04:28)
--- NOTE | 2022-12-02 08:12 | PCM.PN.BLA ---
Progress Note patient has bee pushing for approximately 3 hours. more persistent variable decelerations present with moderate variability between station is at +2 with caput but she is making movement with each push consider vacuum assisted delivery soon.
[2022-12-02] MEDS: Oxytocin 15 Units/NS 250ml 15 UNITS/250 ML IV.SOLN 83 UNITS IV (09:03)
--- NOTE | 2022-12-02 09:48 | EX.PCM.OBRPT ---
Assessment & Plan (1) Obesity affecting : COMMENT: nl 1 tm GCT. encouraged healthy weight gain (2) Supervision of high risk , antepartum: COMMENT: [id number], CHENCHO 12/10/22, boy, unsure name Werner (3) : QUALIFIERS: Weeks of gestation: 38 weeks Qualified Code(s): Z3A.38 - 38 weeks gestation of COMMENT: GBS neg, NIPT low risk, declined carrier testing, declined afp screen, nl anatomy. (4) Abnormal glucose: COMMENT: passed 3 Hr. GTT Maternal Data Information CHENCHO Calculator Estimated Delivery Date Method Current WG Current Estimate 12/08/22 LMP (Certain) 39w 1d Other Estimates 12/07/22 Ultrasound #2 39w 2d Final CHENCHO: 12/07/22 Final CHENCHO Source: LMP Gestational age: 39 weeks 1 day Vaginal Delivery Maternal Presentation Maternal Presentation: Active Labor and Spontaneous Rupture of Membranes Type of Induction: Pitocin Operative Information Date of Procedure: 12/02/22 Pre-Operative Diagnosis: 27 y/o @ 39 weeks 1 day, active labor and srom, maternal exhaustion, persistent variable decelerations Post-Operative Diagnosis: 27 y/o @ 39 weeks 1 day, active labor and srom, maternal exhaustion, persistent variable decelerations Surgery / Procedure Performed: Vacuum Assisted Vaginal Delivery Type of Anesthesia: Epidural Drain: Forte to straight drain Estimated Blood Loss: 100cc Findings Description of Procedure: This is a27 year old woman who was admitted to labor and delivery for active labor and SROM. The decision was made to perform a vacuum extraction due to maternal exhaustion due to pushing for 3 hours and persistent variable heart rate decelerations. The risk benefits and alternatives of the procedure were discussed with the patient and verbal consent was obtained. The infant was noted to be at a +2 station, the cervix was completely dilated. The infant's head was noted to be in the right occiput anterior presentation. The vacuum was placed in the correct placement in front of the posterior fontanelle. This was confirmed digitally. With the patient's next contraction, the vacuum was inflated and a gentle downward pressure was used to assist with bringing the baby's head to a +3 station. With 2 pulls and 0 pop offs. The head was delivered atraumatically. A nuchal cord was noted and reduced without difficulty. The anterior shoulder followed by the posterior shoulder were delivered without difficulty. The was handed off to the patient's chest. The was found to be vigorous and crying and moving of all 4 extremities. The mouth and nares were bulb suctioned. After 60 second delay the cord was clamped and cut and the infant was handed off to the awaiting nurses for routine assessment. The placenta was delivered with gentle traction and uterine massage. Inspection of the vagina cervix and perineum was performed. There were no lacerations to the vagina or to the cervix. The peritoneum was found to be intact. The perineal laceration was closed using a 3-0 Vicryl in the usual sterile fashion. The patient tolerated the procedure well sponge lap and needle counts were correct x2 and she is now recovering in stable condition. Presentation: Vertex Amniotic Membrane Rupture Type: Spontaneous Amniotic Fluid Description: Clear Placental Delivery Description: Spontaneous Placenta Disposition: [facility] Cord Vessel Description: 3 Vessels Cord Entanglement: Around neck x 1, loose Cord Gases: ABG and VBG A Gender: Male (1 minute): 8 (5 minute): 9 Delayed Cord Clamping: Yes Post Vaginal Delivery Medications Given After Delivery: IV Pitocin Episiotomy Description: None Laceration: 2nd degree Complication Complications: None Multi Select Codes Urinary/Genital Urinary/Genital CPT Codes: 61233 Vaginal Delivery global pkg and Other Procedure See Report (vacuum assisted delivery)
[2022-12-02] MEDS: 0.9% Saline Lock 10 ML Syringe IV (12:08)
[2022-12-02] MEDS: Acetaminophen 500 MG Tablet 1000 MG PO (19:18)
[2022-12-03 01:42] VITALS: BP 115/65; PULSE 72; RESP 18
[2022-12-03 05:05] VITALS: BP 111/71; PULSE 77; RESP 18
--- NOTE | 2022-12-03 08:17 | DCINST_ITS ---
Discharge Instructions Diet Discharge Diet: No restrictions Activity Discharge Activity: Return to Normal Activity, May Not Drive (while taking narcotic pain medications.) and May Shower May resume sexual activity in: 4-6 weeks Dressing / Incision Call your doctor if your incision/area has: Continuous Slow Oozing, Sudden Increased Bleeding, Increased Pain/ Swelling, Increased Redness and Foul Smelling Discharge Follow Up Care Please Follow Up With: Ashley Greene DO When: Call [phone] to make an appointment with your doctor in 6 weeks. If you had elevated blood pressure or 4th degree laceration, you will need to be seen in 2 weeks. Test Results: Test results from this visit will be discussed in further detail at your follow- up appointment, if applicable. Discharge Plan Admission Admit Date/Time: 12/01/22 14:10 Primary Reason for Your Visit: vaginal delivery Attending Provider: Ashley Greene Primary Care Provider: Elsy Physician,Kayal Primary Discharge Orders/Prescriptions Prescriptions: New naproxen 500 mg tablet 500 mg PO BID PRN (Reason: pain) Qty: 30 0RF No Action PNV-DHA 27 mg iron-1 mg -300 mg capsule PO Referrals / Follow Up: Care Physician,No Primary [Primary Care Provider] - Disposition Disposition (needs filled in before D/C Order can be placed): Home, Self Care
--- NOTE | 2022-12-03 08:20 | PCM.PN.OB ---
Subjective Subjective Patient doing well without complaints. Tolerating PO. Ambulating and voiding without difficulty. Feeding well. Denies chest pain, shortness of breath, calf pain/swelling, fevers, chills, lightheadedness. Objective Data Objective Data Vital Signs: Vital Signs Temp Pulse Resp BP Pulse Ox O2 Del Method 97.6 F L 77 18 111/71 96 Room Air 12/02/22 20:07 12/03/22 05:05 12/03/22 05:05 12/03/22 05:05 12/02/22 10:47 12/03/22 05:05 Oxygen Delivery Method Room Air Weight: 216 lb 9.6 oz Body Mass Index (BMI) 37.1 Intake & Output: Intake and Output for Last 24 Hours 12/01/22 12/02/22 12/03/22 23:59 23:59 23:59 Intake Total 1536.44 / 1536.44 2614.10 / 2614.10 Output Total 200 / 200 1200 / 1200 Balance 1336.44 / 1336.44 1414.10 / 1414.10 Lab / Micro Data 12/01/22 15:25 ROS Constitutional Constitutional: Denies chills, fatigue, fever(s), poor appetite or weakness Eyes Eyes: Denies blurry vision, change in vision, seeing flashes or spots in vision ENT HEENT: Denies dizziness, headache(s), loss taste/smell or sore throat Cardiovascular Cardiovascular: Denies chest pain, dizziness, dyspnea, irregular heart rhythm, palpitations or rapid heart rate Respiratory/Chest Respiratory/Chest: Denies chest tightness, cough, dyspnea or breast pain Gastrointestinal Gastrointestinal: Denies abdominal pain, constipation or vomiting Genitourinary Genitourinary: Denies dysuria or flank pain Musculoskeletal Musculoskeletal: Denies difficulty walking, joint pain, limited range of motion or numbness Neurologic Neurologic: Denies abnormal movements, abnormal speech, dizziness, numbness, seizure-like activity or syncope Psychiatric Psychiatric: Denies anxiety, behavioral changes, change in appetite, confusion, depression or suicidal thoughts Physical Exam Const alert, oriented x3 and no apparent distress General Appearance: cooperative and comfortable Resp normal respiratory effort Cardio regular rate GI normal to inspection, nondistended, normoactive bowel sounds GI Narrative: uterus is firm below umbilicus Palpation: soft Back/Spine no CVA tenderness and thoraco-lumbar ROM normal Extremity normal to inspection, no clubbing, cyanosis or edema, no calf tenderness and no pedal edema Psych mental status grossly normal, thought process normal, cooperative, affect normal, speech normal, activity/motor behavior normal, denies homicidal ideation and denies suicidal ideation Assessment & Plan (1) Status post vacuum-assisted vaginal delivery: PLAN: s/p PPD # 1 1. routine post delivery care 2. breast feeding- support given 3. rh positive 4. rubella immune 5. plan to dc to home today
[2022-12-03 09:06] VITALS: BP 117/67; PULSE 79; RESP 17; TEMP 36.1
[2022-12-03] MEDS: Acetaminophen 500 MG Tablet 1000 MG PO (09:22)
[2022-12-03 14:56] VITALS: BP 105/61; PULSE 79; RESP 18; TEMP 36.4
== END 2022-12-03 16:05 | disposition home or self-care (01) | DRG 807 ==
LOC: WPOUT 14:28 → WP 12-02 08:36
PROVIDERS: Admitting Provider Obstetrics & Gynecology; Referring Provider Obstetrics & Gynecology; Visit Provider Obstetrics & Gynecology
DX: O76 Abnormality in fetal heart rate and rhythm complicating labor and delivery (principal); Z37.0 Single live birth; O24.410 Gestational diabetes mellitus in pregnancy, diet controlled; O99.214 Obesity complicating childbirth; O42.92 Full-term premature rupture of membranes, unspecified as to length of time between rupture and onset of labor; O26.23 Pregnancy care for patient with recurrent pregnancy loss, third trimester; O75.81 Maternal exhaustion complicating labor and delivery; O69.81X0 Labor and delivery complicated by cord around neck, without compression, not applicable or unspecified; O70.1 Second degree perineal laceration during delivery; Z3A.39 39 weeks gestation of pregnancy; Z87.59 Personal history of other complications of pregnancy, childbirth and the puerperium
CPT/HCPCS: 59025; 59050; 85025; 86780; 86850; 86900; 86901; 99221; J7030; J7120; A4216; G0378; J2405

== ENCOUNTER → 2023-01-15 | Outpatient (CLI) | payer BC, SELFPAY ==
[2023-01-19 19:36] LABS: HPV Reflexed? NOT INDICATED
== END | disposition home or self-care (01) ==
LOC: LABSPEC 15:42
PROVIDERS: Referring Provider Obstetrics & Gynecology; Visit Provider Obstetrics & Gynecology
DX: Z12.4 Encounter for screening for malignant neoplasm of cervix (principal)
CPT/HCPCS: 88175; G0145

== ENCOUNTER → 2023-08-10 | Outpatient (CLI) | payer BC, SELFPAY ==
[2023-08-10 12:04] LABS: Absolute Lymphocyte Count 2.75 X10^3/uL (0.83-4.51); Absolute Neutrophil Count 2.8 X10^3/uL (2.0-7.7); Basophil# 0.05 X10^3/uL; Basophil% 0.8 % (0-1); Eosinophils% 1.6 % (0-5); Hematocrit 45.6 % (37-47); Hemoglobin 15.1 g/dL (12.0-15.0); Lymphocyte # 2.75 X10^3/ul (0.83-4.51); Lymphocyte % 43.9 % (19-41); Mean Corp Hgb Conc 33.1 g/dL (32-36); Mean Corpuscular Hgb 28.6 pg (27.0-32.0); Mean Corpuscular Volume 86.4 fL (81-99); Monocyte# 0.53 X10^3/uL; Monocyte% 8.5 % (0-10); NRBC Flagged by Analyzer 0 % (0-5); Neutrophil # 2.81 X10^3/uL (2.7-7.7); Neutrophil % 44.9 % (47-70); Platelet Count 313 K/mm3 (150-450); RBC Distribution Width CV 13.3 % (11.6-14.6); RBC Distribution Width SD 41.5 fl (35.1-43.9); Red Blood Count 5.28 M/mm3 (4.2-5.4); White Blood Count 6.3 K/mm3 (4.4-11.0)
[2023-08-10 12:41] LABS: ALB/GLOB Ratio 1.1 RATIO (0.9-2.4); AST(SGOT) 13 U/L (15-37); Alanine Aminotransfer ALT/SGPT 18 U/L (13-56); Albumin, Serum 3.9 g/dL (3.2-5.0); Alkaline Phosphatase 63 U/L (45-117); Anion Gap 6 (5-15); BUN 10 mg/dL (7-18); BUN/Creat Ratio 12.9 RATIO (10-20); Calcium,Total 9.3 mg/dL (8.5-10.1); Chloride 108 mmol/L (98-107); Cholesterol 150 mg/dL (200); Creatinine, Serum 0.78 mg/dL (0.55-1.02); EST Glomerular Filtration Rate 92 mL/min (>60); Est Glom Filt Rate - Afr Amer 112 mL/min (>60); Globulin 3.5 g/dL (2.2-4.2); Glucose 83 mg/dL (74-106); High Density Lipoprotein 57 mg/dL; Potassium 4.3 mmol/L (3.5-5.1); Protein, Total 7.4 g/dL (6.4-8.2); Sodium Level 139 mmol/L (136-145); Triglycerides 38 mg/dL; Very Low Density Lipoprotein 8 mg/dL (5-40)
== END | disposition home or self-care (01) ==
LOC: BIMLAB 09:46
PROVIDERS: PCP Nurse Practitioner; Visit Provider Nurse Practitioner
DX: Z00.00 Encounter for general adult medical examination without abnormal findings (principal)
CPT/HCPCS: 36415; 80053; 80061; 85025

== ENCOUNTER → 2024-06-18 | Outpatient (CLI) | payer BC, SELFPAY ==
[2024-06-18 11:30] LABS: hCG Titer Quant., Serum 1992 mIU/mL (<9 non-preg)
== END | disposition home or self-care (01) ==
PROVIDERS: PCP Nurse Practitioner; Referring Provider Obstetrics & Gynecology; Visit Provider Obstetrics & Gynecology
DX: Z87.59 Personal history of other complications of pregnancy, childbirth and the puerperium (principal)
CPT/HCPCS: 36415; 84702

== ENCOUNTER → 2024-06-20 | Outpatient (CLI) | payer BC, SELFPAY ==
[2024-06-20 11:57] LABS: hCG Titer Quant., Serum 3892 mIU/mL (<9 non-preg)
== END | disposition home or self-care (01) ==
LOC: LAB 10:48
PROVIDERS: PCP Nurse Practitioner; Referring Provider Obstetrics & Gynecology; Visit Provider Obstetrics & Gynecology
DX: Z87.59 Personal history of other complications of pregnancy, childbirth and the puerperium (principal)
CPT/HCPCS: 36415; 84702

== ENCOUNTER → 2024-06-27 | Outpatient (CLI) | payer BC, SELFPAY ==
--- NOTE | 2024-06-27 11:20 | US_ITS ---
PROCEDURE: TRANSVAGINAL W/PREG US 06/27/2024 REASON FOR EXAM: VIABILITY TECHNIQUE: Transvaginal OB ultrasound COMPARISON: None available FINDINGS: Transvaginal imaging Single live intrauterine fundal portion of the uterus measuring 6 weeks and 2 days by mean sac diameter, 6 weeks and 3 days by crown-rump length. Estimated gestational age by ultrasound 6 weeks and 3 days, CHENCHO 02/17/2025 Estimated gestational age by LMP 6 weeks and 5 days, CHENCHO 02/15/2025 heart tones 127 beats per minute. No evidence of eric sac hemorrhage identified. Yolk sac measures 3 mm. Cervix appears closed. Very small amount of cul-de-sac free fluid. The uterus measures 10.3 x 7.3 x 4.6 cm and appears within limits. The right ovary measures 3.4 x 3.2 x 2.0 cm and appears within limits. The left ovary is not visualized due to bowel gas. No evidence of adnexal mass identified. US/Transvaginal w/Preg US IMPRESSION: Single live intrauterine by ultrasound 6 weeks and 3 days, CHENCHO 2024. By LMP 6 weeks and 5 days, CHENCHO 02/15/2025. The left ovary is not visualized due to bowel gas. Very small amount of pelvic cul-de-sac free fluid. Reading Location: [id number]
== END | disposition home or self-care (01) ==
LOC: US 11:20
PROVIDERS: PCP Nurse Practitioner; Referring Provider Nurse Practitioner Women's Health; Visit Provider Nurse Practitioner Women's Health
DX: Z87.59 Personal history of other complications of pregnancy, childbirth and the puerperium (principal)
CPT/HCPCS: 76817

== ENCOUNTER → 2024-07-15 | Outpatient (CLI) | payer BC, SELFPAY ==
[2024-07-17 21:07] LABS: Chlamydia By Nucleic Acid AMP Negative (Negative); Gonococcus By Nucleic Acid AMP Negative (Negative)
== END | disposition home or self-care (01) ==
LOC: LABSPEC 16:23
PROVIDERS: PCP Nurse Practitioner; Referring Provider Obstetrics & Gynecology; Visit Provider Obstetrics & Gynecology
DX: O09.90 Supervision of high risk pregnancy, unspecified, unspecified trimester (principal); Z3A.00 Weeks of gestation of pregnancy not specified
CPT/HCPCS: 87086; 87491; 87591

== ENCOUNTER → 2024-07-23 | Outpatient (CLI) | payer BC, SELFPAY ==
[2024-07-23 12:11] LABS: Absolute Lymphocyte Count 1.89 X10^3/uL (0.83-4.51); Absolute Neutrophil Count 4.3 X10^3/uL (2.0-7.7); Basophil# 0.04 X10^3/uL; Basophil% 0.6 % (0-1); Eosinophil# 0.14 X10^3/uL; Hemoglobin 13.9 g/dL (12.0-15.0); Lymphocyte # 1.89 X10^3/ul (0.83-4.51); Lymphocyte % 27.5 % (19-41); Mean Corp Hgb Conc 33.9 g/dL (32-36); Mean Corpuscular Hgb 30.2 pg (27.0-32.0); Mean Corpuscular Volume 89.1 fL (81-99); Mean Platelet Vol. 8.8 fl (6.2-12.0); Monocyte% 7.3 % (0-10); NRBC Flagged by Analyzer 0 % (0-5); Neutrophil # 4.27 X10^3/uL (2.7-7.7); Neutrophil % 62.2 % (47-70); Platelet Count 249 K/mm3 (150-450); RBC Distribution Width CV 13.3 % (11.6-14.6); RBC Distribution Width SD 43.8 fl (35.1-43.9); White Blood Count 6.9 K/mm3 (4.4-11.0)
[2024-07-23 12:56] LABS: HIV Nonreactive (Nonreactive); Hepatitis B Surface Antigen Nonreactive (Nonreactive); Hepatitis C Antibody Nonreactive (Nonreactive); Rubella IgG REAC (Nonreactive); Syphilis Antibodies Nonreactive (Nonreactive)
== END | disposition home or self-care (01) ==
PROVIDERS: PCP Nurse Practitioner; Referring Provider Obstetrics & Gynecology; Visit Provider Obstetrics & Gynecology
DX: O99.210 Obesity complicating pregnancy, unspecified trimester (principal); Z3A.00 Weeks of gestation of pregnancy not specified
CPT/HCPCS: 36415; 83036; 85025; 86703; 86762; 86780; 86803; 86850; 86900; 86901; 87340

== ENCOUNTER → 2024-11-14 | Outpatient (CLI) | payer BC, SELFPAY ==
[2024-11-14 16:47] LABS: Hematocrit 38.5 % (37-47); Hemoglobin 13.3 g/dL (12.0-15.0); Immature Granulocytes Count 0.050 X10^3/uL (0.0-0.0); Mean Corp Hgb Conc 34.5 g/dL (32-36); Mean Corpuscular Volume 91.2 fL (81-99); Mean Platelet Vol. 8.5 fl (6.2-12.0); NRBC Flagged by Analyzer 0 % (0-5); Platelet Count 264 K/mm3 (150-450); RBC Distribution Width CV 13.2 % (11.6-14.6); RBC Distribution Width SD 43.6 fl (35.1-43.9); Red Blood Count 4.22 M/mm3 (4.2-5.4); White Blood Count 10.5 K/mm3 (4.4-11.0)
[2024-11-14 17:37] LABS: Glucose Challenge Gest 1H 50g 109 mg/dL (70-140); HIV Nonreactive (Nonreactive); Syphilis Antibodies Nonreactive (Nonreactive)
== END | disposition home or self-care (01) ==
PROVIDERS: Advanced Practice Midwife; PCP Nurse Practitioner; Referring Provider Obstetrics & Gynecology; Visit Provider Obstetrics & Gynecology
DX: O09.90 Supervision of high risk pregnancy, unspecified, unspecified trimester (principal); Z3A.00 Weeks of gestation of pregnancy not specified; Z13.1 Encounter for screening for diabetes mellitus
CPT/HCPCS: 36415; 82950; 85025; 86703; 86780

== ENCOUNTER → 2024-12-31 | Outpatient (CLI) | payer BC, SELFPAY ==
--- NOTE | 2024-12-31 16:33 | US_ITS ---
PROCEDURE: OB LIMITED WITH BIOMETRICS 12/31/2024 REASON FOR EXAM: POOR WEIGHT GAIN IN TECHNIQUE: Procedure Code: [id number] Modality: US Procedure: OB LIMITED WITH BIOMETRICS COMPARISON: None FINDINGS Number: 1 Position: Breech Placental Position: Posterior and not low-lying Placental Abnormalities: No evidence of previa. DIMENSIONS: Biparietal Diameter: 8.7 cm: 35 weeks and 0 days: 85th percentile/ Head Circumference: 3.04 cm: 33 weeks and 6 days: 23rd percentile/ Abdominal Circumference: 29.7 cm: 33 weeks and 5 days: 60 percentile/ Femur Length: 6.6 cm: 33 weeks and 6 days: 50 percentile/ ESTIMATED WEIGHT: 2336 g plus/-350 g ESTIMATED WEIGHT PERCENTILE (24+ weeks): 61 ESTIMATED GESTATIONAL AGE: Baseline: 33 weeks and 3 days By Ultrasound: 34 weeks and 2 days ESTIMATED DATE OF DELIVERY: Baseline: February 15, 2025 By Ultrasound: February 09, 2025 BIOPHYSICAL ASSESSMENT: Amniotic Fluid Volume: 6.4 Amniotic Fluid Index: 18.2 (8-24 cm normal range) Cardiac Motion: 130 beats per minute (average) Trunk and Limb Motion: Present. MATERNAL ANATOMY: Adnexa: Neither maternal ovary is successfully identified. US/OB Limited With Biometrics IMPRESSION: Single live intrauterine gestation with a mean gestational age of 34 weeks and 2 days. Reading Location: [place] [id number]
== END | disposition home or self-care (01) ==
LOC: US 16:28
PROVIDERS: Referring Provider Obstetrics & Gynecology; Visit Provider Obstetrics & Gynecology
DX: O26.10 Low weight gain in pregnancy, unspecified trimester (principal); Z3A.00 Weeks of gestation of pregnancy not specified
CPT/HCPCS: 76816

== ENCOUNTER → 2025-01-19 | Outpatient (CLI) | payer SELFPAY | END | disposition home or self-care (01) | LOC: LABSPEC 10:17 | PROVIDERS: Visit Provider Obstetrics & Gynecology | DX: O09.93 Supervision of high risk pregnancy, unspecified, third trimester (principal); Z3A.00 Weeks of gestation of pregnancy not specified | CPT/HCPCS: 87081 ==

== ENCOUNTER 2025-02-11 12:30 | Inpatient (IN) | payer BC, SELFPAY ==
[2025-02-11] VITALS (132 sets, daily range): BP systolic 79–184; BP diastolic 39–135; PULSE 68–184; RESP 12–18; TEMP 36–36.7; O2SAT 82–100; BMI 34.3
[2025-02-11 13:11] LABS: Hematocrit 44.5 % (37-47); Hemoglobin 14.9 g/dL (12.0-15.0); Immature Granulocytes Count 0.150 X10^3/uL (0.0-0.0); Mean Corp Hgb Conc 33.5 g/dL (32-36); Mean Corpuscular Volume 87.6 fL (81-99); Mean Platelet Vol. 8.6 fl (6.2-12.0); NRBC Flagged by Analyzer 0 % (0-5); Platelet Count 259 K/mm3 (150-450); RBC Distribution Width CV 14.1 % (11.6-14.6); RBC Distribution Width SD 44.6 fl (35.1-43.9); Red Blood Count 5.08 M/mm3 (4.2-5.4); White Blood Count 14.9 K/mm3 (4.4-11.0)
[2025-02-11] MEDS: LACTATED RINGERS 500 ML 999 ML IV ×2 (13:16→14:40)
--- NOTE | 2025-02-11 13:18 | HP.PCM.OB_ITS ---
HPI - General General Date of Admission: 02/11/25 Date of Service: 02/11/25 HPI Narrative MAITE OWENS, is a 30 F at 39.3 weeks who presents to unit with uterine contractions. minimal cervical change noted but deceleration noted on FHT. decision made for admission. Maternal Data Information CHENCHO Calculator Estimated Delivery Date Method Current WG Current Estimate 02/15/25 LMP (Certain) 39w 3d Other Estimates 02/19/25 Ultrasound #1 38w 6d Final CHENCHO: 02/11/25 Final CHENCHO Source: US >20 weeks Gestational age: 39.3 PFSH PFSH Medical History Infertility Abnormal glucose Ectopic Alcohol use Asthma Non-smoker Missed Supervision of high risk , antepartum COVID-19 vaccine series completed Subchorionic hematoma Threatened Home Medications ?Medication ?Instructions ?Recorded ?Last Taken ?Type aspirin 81 mg tablet,delayed 81 mg PO QDAY 06/27/24 Un known History release multivitamin no.47-iron fum 27 cap PO 06/27/24 Unknown History mg-folate no.1 1 mg-dha 300 mg capsule (PNV-DHA) Allergy/AdvReac Type Severity Reaction Status Date / Time codeine AdvReac HALLUCINATI Verified 02/10/25 11:42 ONS Family History Mother HHT (hereditary hemorrhagic telangiectasia) Grandmother HHT (hereditary hemorrhagic telangiectasia) Sister HHT (hereditary hemorrhagic telangiectasia) Surgical History History of surgery Status post dilation and curettage [place] teeth extracted History of tonsillectomy Social History adopted: No household members: spouse, significant other and children housing: house number of children: 1 current occupational status: employed current occupation: [employer] current occupational exposures/hazards: No pets and animals: Yes pets and animals: dog(s) history of recent travel: Yes out of state: Yes out of country: No sexually active: Yes Smoking Status: Never smoker Tobacco: How many years used: 0 second hand exposure: No alcohol intake: former details: none with substance use type: does not use well-balanced diet: daily or most days caffeine: Yes Type: coffee Number of servings: 2 eating out: 1-3 times/week during the past year weight has: decreased > 10 lbs what type of physical activity do you participate in: aerobics and weight training frequency: 3-4 times per week duration: 30-45 minutes/day nini/synagogue: [employer] seatbelt use: always do you feel safe at home: Yes additional social history: - Werner History 5 Elective abortions Hx Para 1 Spontaneous abortions 3 Hx # Term Pregnancies Ectopic pregnancies Hx # Pregnancies Multiple births # of living children 1 Past Pregnancies Del. Date Name GA/Weeks Outcome Route Bth Weight Gen Labor Lgth Anes thesi a Del Locatn Provider FOB Unknown 08/2020 SAB no intervention Unknown 06/2021 miscarriage 7 weeks Unknown 10/2021 ectopic 12/02/22 Michel 39 live - full term 6lbs 9oz Male epi dural [facility] Werner Delivery Date: Last Updated by: Renea Mo D&C Visit Details Expected Delivery Route/Plan Labor Preferences- CB/BF classes: no labor support person: Werner labor intervention preferences: [] pain management options preferred:epidural cut cord/dad catch: cord : yes PP control planned: discussed discussed possible routes of delivery and associated risks: [] special requests: [] Plans Covid status: [] Flu vaccine: given Tdap vaccine: given Rhogam: NA LARC form signed: yes movement and labor precautions reviewed. Problem list reviewed and updated with the most current plan of care details and appropriate orders placed. Relevant counseling for the gestational age provided. Continue routine care and follow up unless otherwise noted in visit notes/problem list details OB Flowsheet Initial Weight: 178 lb Date -?-?-?-?-?-?-?-?-?-?-?-?- EGA Weight BP Urine Prot -?-?-?-?-?-?-?-?-?-?-?-?- Glucose FHR FuHt Pres Dilation -?-?-?-?-?-?-?-?-?-?-?-?- Effaced St Visit Note 07/15/24 -?-?-?-?-?-?-?-?-?-?-?-?- 9w 2d 184 lb 5 oz (+6 lb 5 oz) 108/71 -?-?-?-?-?-?-?-?-?-?-?-?- 160 -?-?-?-?-?-?-?-?-?-?-?-?- SM- CRL 2 cm con s with LMP 08/22/24 -?-?-?-?-?-?-?-?-?-?-?-?- 14w 5d 189 lb 8 oz (+11 lb 8 oz) 94/58 Negative -?-?-?-?-?-?-?-?-?-?-?-?- Negative 155 -?-?-?-?-?-?-?-?-?-?-?-?- JV- doppler hear t tones today. is asymptomatic with low blood pressure. encouraged to increase fluids and wear compression stockings . low risk NIPT girl! anatomy scan ordered. will stay on progesterone until 16 weeks and baby asa the whole . 09/19/24 -?-?-?-?-?-?-?-?-?-?-?-?- 18w 5d 190 lb 8 oz (+12 lb 8 oz) 96/56 Negative -?-?-?-?-?-?-?-?-?-?-?-?- Negative 150 -?-?-?--?-?-?-?-?-?-?-?-?- JV- no lof, vagi nal bleeding, or cramping. no movement yet. normal anatomy scan. has marginal cord insertion. 10/17/24 -?-?-?-?-?-?-?-?-?-?-?-?- 22w 5d 192 lb 2 oz (+14 lb 2 oz) 97/62 Negative -?-?-?-?-?-?-?-?-?-?-?-?- Negative 145 22 -?-?-?-?-?-?-?-?-?-?-?-?- KW- no vb/crampi ng. good fm. no concerns today. glucose info reviewed. 11/14/24 -?-?-?-?-?-?-?-?-?-?-?-?- 26w 5d 197 lb 1 oz (+19 lb 1 oz) 113/71 Negative -?-?-?-?-?-?-?-?-?-?-?-?- Negative 140 27 -?-?-?-?-?-?-?-?-?-?-?-?- SM- no vb lof go od fm n oregular ctx cbc gct today 12/09/24 -?-?-?-?-?--?-?-?-?-?-?-?- 30w 2d 197 lb 3 oz (+19 lb 3 oz) 98/67 Negative -?-?-?-?-?-?-?-?-?-?-?-?- Negative 155 31 -?-?-?-?-?-?-?-?-?-?-?-?- MH-No VB, LOF. G ood FM. Struggling with epitaxis. Zackary FAUSTIN Larc. Tdap 12/23/24 -?-?-?-?-?-?-?-?-?-?-?-?- 32w 2d 195 lb 2 oz (+17 lb 2 oz) 104/69 Negative -?-?-?-?-?-?-?-?-?-?-?-?- Negative 141 33 -?-?-?-?-?-?-?-?-?-?-?-?- JV- gets flu [facility] no loss of fluid, vaginal bleeding, or dec fm. JV- gets flu + [facility] no loss of fluid, vaginal bleeding, or dec fm. SHe is worried about not gaining weight. pt reassured that is doing ok with her 17 pound weight gain but will order growth scan in meantime. 01/06/25 -?-?-?-?-?-?-?-?-?-?-?-?- 34w 2d 198 lb (+20 lb) 105/64 -?-?-?-?-?-?-?-?-?-?-?-?- 140 35 Breech -?-?-?-?-?-?-?-?-?-?-?-?- SM- counseled re garding ECV if stil lbreech next visit no vb lof good fm 01/19/25 -?-?-?-?-?-?-?-?-?-?-?-?- 36w 1d 203 lb 1 oz (+25 lb 1 oz) 115/77 Negative -?-?-?-?-?-?-?-?-?-?-?-?- Negative 140 36 Cephalic 0 -?-?-?-?-?-?-?-?-?-?-?--?- SM- no vb lof go od fm no regular ctx now vertex 01/26/25 -?-?-?-?-?-?-?-?-?-?-?-?- 37w 1d 199 lb 8 oz (+21 lb 8 oz) 108/68 Negative -?-?-?-?-?-?-?-?-?-?-?-?- Negative 145 37 Cephalic -?-?-?-?-?-?-?-?-?-?-?-?- - no vb lof go od fm n oreuglar ctx 02/02/25 -?-?-?-?--?-?-?-?-?-?-?-?- 38w 1d 202 lb 5 oz (+24 lb 5 oz) 101/63 Negative -?-?-?-?-?-?-?-?-?-?-?-?- Negative 150 38 Cephalic 0 -?-?--?-?-?-?-?-?-?-?-?-?- -2 JV- no l of, vaginal bleeding, or dec fm. 02/10/25 -?-?-?-?-?-?-?-?-?-?-?-?- 39w 2d 201 lb 8 oz (+23 lb 8 oz) 108/75 -?-?-?-?-?-?-?-?-?-?-?-?- 145 40 Cephalic 3 -?-?-?-?-?-?-?-?-?-?-?-?- 70 -3 KW- no vb/ lof/ctx. good fm no concerns today NST FHR Rate Baby A Baseline: 125 Variability:: Moderate Accelerations:: 15 x 15 Decelerations:: None NST Reactive:: Yes FHR Category:: Category I Uterine Activity:: 2-3 minutes ROS Constitutional Constitutional: Denies change in weight, fatigue, fever(s), headache(s), poor appetite or weakness Eyes Eyes: Denies blurry vision, change in vision, floaters, seeing flashes or spots in vision ENT HEENT: Denies dizziness, headache(s), loss taste/smell or sore throat Cardiovascular Cardiovascular: Denies chest pain, dizziness, dyspnea, irregular heart rhythm, lightheadedness, palpitations or rapid heart rate Respiratory/Chest Respiratory/Chest: Denies change in mental status, chest tightness, cough, dyspnea or breast pain Gastrointestinal Gastrointestinal: Denies anorexia, chewing difficulty, constipation, diarrhea or weight changes Genitourinary Genitourinary: Denies difficulty urinating, dysuria, flank pain, genital pain, urinary frequency or urinary urgency Musculoskeletal Musculoskeletal: Denies back pain, difficulty walking, extremity pain, joint pain, muscle cramps or muscle weakness Integumentary Integumentary: Denies lesions or unusual bruising Neurologic Neurologic: Denies abnormal movements, abnormal speech, dizziness, numbness, seizure-like activity, syncope or weakness Psychiatric Psychiatric: Denies behavioral changes, change in appetite, confusion, depression, homicidal ideation, suicidal ideation or suicidal thoughts Endocrine Endocrinology: Denies excessive sweating, polydipsia or polyuria Hematologic/Lymphatic Hematologic/Lymphatic: Denies anemia Allergic/Immunologic Allergic/Immunologic: Denies itchy eyes, lip swelling, throat swelling, tongue swelling or wheezing Vital Signs Vital Signs Vital Signs: 02/11/25 09:50 02/11/25 09:50 02/11/25 09:50 Temperature Temperature Source Tympanic Pulse Rate 97 Respiratory Rate Blood Pressure 95/65 BP Systolic 95 BP Diastolic 65 Pulse Ox 02/11/25 09:50 02/11/25 09:50 02/11/25 09:50 Temperature 97.8 F Temperature Source Pulse Rate Respiratory Rate 12 Blood Pressure BP Systolic BP Diastolic Pulse Ox 96 Weight Weight: 200 lb Body Mass Index (BMI) 34.3 PRE- weight 178 lb PRE- Body Mass Index 30.5 (BMI) Physical Exam Const alert, oriented x3 and no apparent distress General Appearance: cooperative Orientation / Consciousness: awake HEENT normocephalic Neck full ROM Lymph Lymphatic: no lymphadenopathy noted Chest inspection of chest normal Resp normal respiratory effort and normal air movement Effort and Inspection: able to speak in complete sentences and symmetric chest movement GI soft to palpation and non-tender Inspection: gravid Palpation: soft; Negative for tender external exam normal Back/Spine normal to inspection Extremity normal to inspection and full ROM Skin no rashes or lesions noted Psych mental status grossly normal Appearance: grossly normal Speech: normal speech Labs Labs Labs: Blood Type O POSITIVE Antibody Screen NEGATIVE Hct, (37-47) 44.5 % Hgb, (12.0-15.0) 14.9 g/dL Obstetrics Ultrasound Syphilis Total Ab, (Nonreactive) Nonreactive Rubella IgG Antibody, (Nonreactive) REAC Hep Bs Antigen, (Nonreactive) Nonreactive Hepatitis C Antibody, (Nonreactive) Nonreactive Chlamydia DNA (ADI), (Negative) Negative N.gonorrhoeae DNA (ADI), (Negative) Negative HIV 1&2 Antibody, (Nonreactive) Nonreactive Glucose 1 Hr 50 gm, (70-140) 109 mg/dL Gest Glucose Tolerance MG/DL Miscellaneous Test Assessment & Plan (1) Active labor: PLAN: Patient presents IAL, plan expectant management for , pitocin/AROM PRN if needed. Pain management: plans epidural. GBS neg. Management of any complications: none I have reviewed the [facility] and made any clinically relevant updates. Dr Thurston aware of assessment, plan and admission. agrees with above (2) Poor weight gain of : COMMENT: 33w:EFW 61%, AC 60% (3) Supervision of high-risk : QUALIFIERS: Trimester: third trimester Qualified Code(s): O09.93 - Supervision of high risk , unspecified, third trimester COMMENT: PRR , CHENCHO 02/15/25, girl Milana SAUCEDO Michel, Werner (4) : QUALIFIERS: Weeks of gestation: 39 weeks Qualified Code(s): Z3A.39 - 39 weeks gestation of COMMENT: GBS neg, LR girl. declines carrier ad afp. nl anatomy. 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
[2025-02-11 14:03] LABS: Syphilis Antibodies Nonreactive (Nonreactive)
[2025-02-11] MEDS: fentaNYL-bupivacaine (epidural) 100 ML BAG EPIDURAL (14:38)
[2025-02-11] MEDS: Lactated Ringers 1,000 ML 200 ML IV ×2 (15:09→20:08)
--- NOTE | 2025-02-11 16:26 | PCM.PN.BLA ---
Progress Note comfortable with epidural current tracing: FHT: 120 Moderate variability reactive no decelerations category I tracing [place]: 3-4 minutes Contractions Membranes:ruptured for clear at 1620 SVE:4/-1 A/P: Continue with position changes Titrate pitocin per protocol Epidural per anesthesia GBS neg Anticipate Dr Mann aware of above assessment and agrees with plan of care Assessment & Plan Assessment/Plan (1) Active labor: (2) Poor weight gain of : (3) Supervision of high-risk : QUALIFIERS: Trimester: third trimester Qualified Code(s): O09.93 - Supervision of high risk , unspecified, third trimester (4) : QUALIFIERS: Weeks of gestation: 39 weeks Qualified Code(s): Z3A.39 - 39 weeks gestation of (5) Obesity affecting : QUALIFIERS: Trimester: third trimester Obesity type affecting : unspecified obesity Qualified Code(s): O99.213 - Obesity complicating , third trimester (6) HHT (hereditary hemorrhagic telangiectasia): (7) History of miscarriage: (8) Hx of ectopic : (9) Family history of hereditary hemorrhagic telangiectasia (HHT): Multi Select Codes Urinary/Genital Urinary/Genital CPT Codes: No Charge
[2025-02-11] MEDS: Oxytocin 15 Units/NS 250ml 15 UNITS/250 ML IV.SOLN 2 UNITS IV (17:23)
--- NOTE | 2025-02-11 20:10 | PCM.PN.BLA ---
Progress Note comfortable with epidural current tracing: FHT: 120 Moderate variability reactive no decelerations category I tracing [place]: 2-3 Contractions Membranes:remains clear SVE:/-1 A/P: Continue with position changes Titrate pitocin per protocol Epidural per anesthesia GBS neg Anticipate Dr Mann aware of above assessment and agrees with plan of care Assessment & Plan Assessment/Plan (1) Active labor: (2) Poor weight gain of : (3) Supervision of high-risk : QUALIFIERS: Trimester: third trimester Qualified Code(s): O09.93 - Supervision of high risk , unspecified, third trimester (4) : QUALIFIERS: Weeks of gestation: 39 weeks Qualified Code(s): Z3A.39 - 39 weeks gestation of (5) Obesity affecting : QUALIFIERS: Trimester: third trimester Obesity type affecting : unspecified obesity Qualified Code(s): O99.213 - Obesity complicating , third trimester (6) HHT (hereditary hemorrhagic telangiectasia): (7) History of miscarriage: (8) Hx of ectopic : (9) Family history of hereditary hemorrhagic telangiectasia (HHT): Multi Select Codes Urinary/Genital Urinary/Genital CPT Codes: No Charge
--- NOTE | 2025-02-11 21:16 | OB.VAGDELI_ITS ---
Assessment & Plan (1) Vaginal delivery: COMMENT: KW IAL girl swapna 39 weeks (2) Active labor: (3) Poor weight gain of : COMMENT: 33w:EFW 61%, AC 60% (4) Supervision of high-risk : QUALIFIERS: Trimester: third trimester Qualified Code(s): O09.93 - Supervision of high risk , unspecified, third trimester COMMENT: PRR , CHENCHO 02/15/25, girl Swapna PC Michel, Werner (5) : QUALIFIERS: Weeks of gestation: 39 weeks Qualified Code(s): Z3A.39 - 39 weeks gestation of COMMENT: GBS neg, LR girl. declines carrier ad afp. nl anatomy. 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 01/2024 (8) History of miscarriage: COMMENT: x3; stopped ASA due to nose bleeds at 28 wk (9) Hx of ectopic : COMMENT: x1 (10) Family history of hereditary hemorrhagic telangiectasia (HHT): Maternal Data Information CHENCHO Calculator Estimated Delivery Date Method Current WG Current Estimate 02/15/25 LMP (Certain) 39w 3d Other Estimates 02/19/25 Ultrasound #1 38w 6d Final CHENCHO: 02/15/25 Final CHENCHO Source: US >20 weeks Gestational age: 39.3 Vaginal Delivery Maternal Presentation Maternal Presentation: Active Labor Maternal Presentation: Presented to unit for active labor at 39.3 weeks Vaginal Delivery Information Procedure Performed: Spontaneous Vaginal Delivery Surgeon/Practitioner: Charmaine Carmona Date of Procedure: 02/11/25 Pre-Procedure Diagnosis: see problem list Post-Procedure Diagnosis: same Type of anesthesia: None Estimated Blood Loss: 200 Time of Delivery: 21:01 Findings Description of procedure: Progressed well to 10cm dilated and made steady progress with effective maternal pushing. Delivered the head in MOE presentation. The head was delivered atraumatically and no nuchal cord was identified. The anterior and posterior shoulders delivered without complication followed by the rest of the infant and the was placed on the maternal abdomen. Delayed cord clamping was employed for approximately 3 minutes. Cord was clamped and cut and gentle traction was applied to the cord and the placenta delivered spontaneously. Immediately following, it was noted to be intact with a 3 vessel cord. Uterine bleeding stable. The perineum and vagina were inspected and noted to have a second degree laceration which was repaired with 3-0 Vicryl in the usual fashion. EBL was 200. Patient and infant tolerated delivery well. Apgars 9/9. Dr [Johnathan] [Lamine] notified of vaginal delivery and orders reviewed. Physician agrees with current plan of care. 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
--- NOTE | 2025-02-11 21:19 | DCINST_ITS ---
Discharge Instructions DC O2, CPAP, BIPAP needs Home O2 Discharge instructions: No Dressing / Incision Discharge Activity: Return to Normal Activity May resume sexual activity in: 6-8 weeks Dressing / Incision Call your doctor if you observe: Fever of 101 or Higher, Coldness, Increased Pain, Numbness or Tingling, Change in Color, Inability to urinate, Inability to have a bowel movement, Using more than 1 pad per hour, Shortness of breath, Dizziness, Fainting spells, Swelling in the ankles, Chest pain, Increased palpitations (irregular heartbeat), Calf discomfort and Uncontrolled pain Follow Up Care Please Follow Up With: Charmaine Carmona CNM When: Please call the office to schedule your follow up appointment in 6 weeks. If you had high blood pressure please call to schedule an appointment in 2 weeks. Test Results: Test results from this visit will be discussed in further detail at your follow- up appointment, if applicable. Discharge Plan Admission Admit Date/Time: 02/11/25 12:30 Attending Provider: Charmaine Carmona Primary Care Provider: Care Physician,Kayla Primary Discharge Orders/Prescriptions Prescriptions: No Action PNV-DHA 27 mg iron-1 mg -300 mg capsule PO Referrals / Follow Up: Care Physician,No Primary [Primary Care Provider, Medical]
[2025-02-11] MEDS: Oxytocin 15 Units/NS 250ml 15 UNITS/250 ML IV.SOLN 83 UNITS IV (21:44)
[2025-02-12] VITALS (7 sets, daily range): BP systolic 93–114; BP diastolic 55–73; PULSE 61–77; RESP 16; TEMP 36.2–37.3; O2SAT 94–97
--- NOTE | 2025-02-12 07:48 | PCM.PN.BLA ---
Progress Note Patient doing well without complaints. Tolerating PO. Ambulating and voiding without difficulty. Feeding well. Denies chest pain, shortness of breath, calf pain/swelling, fevers, chills, lightheadedness. Physical Exam Const alert General Appearance: comfortable and well developed Orientation / Consciousness: awake Resp normal respiratory effort Effort and Inspection: able to speak in complete sentences and symmetric chest movement Cardio regular rate and regular rhythm GI soft to palpation and non-tender Palpation: other Other Details: uterus firm and below umbilicus Assessment & Plan Assessment/Plan (1) Vaginal delivery: PLAN: s/p PPD # 1 1. routine post delivery care - 2nd degree lac 2. breast feeding- support given 3. rh positive 4. rubella immune 5. baby girl 6. BP reviewed and wnl
--- NOTE | 2025-02-12 08:24 | NURSING ---
Epidural catheter removed at 0230 by this RN. Blue tip intact.
[2025-02-12] MEDS: GLYCERIN/WITCH HAZEL (TUCKS) MED..PAD 1 EACH TOPICAL (08:42)
[2025-02-12] MEDS: Benzocaine/Lanolin/Aloe Vera 85 GM Spray 1 SPRAY TOPICAL (08:43)
[2025-02-12] MEDS: SELF ADMINISTRATION OF MEDS 1 EACH NOTE (12:45)
[2025-02-13 03:05] VITALS: BP 96/59; PULSE 69; RESP 16; TEMP 36.6; O2SAT 95
--- NOTE | 2025-02-13 07:58 | PCM.PN.OB ---
Subjective Subjective Patient doing well without complaints. Tolerating PO. Ambulating and voiding without difficulty. Feeding well. Denies chest pain, shortness of breath, calf pain/swelling, fevers, chills, lightheadedness. Objective Data Objective Data Vital Signs: Vital Signs Temp Pulse Resp BP Pulse Ox O2 Del Method 97.9 F 69 16 96/59 L 95 Room Air 02/13/25 03:05 02/13/25 03:05 02/13/25 03:05 02/13/25 03:05 02/13/25 03:05 02/13/25 03:05 Oxygen Delivery Method Room Air Weight: 200 lb Body Mass Index (BMI) 34.3 Intake & Output: Intake and Output for Last 24 Hours 02/11/25 02/12/25 02/13/25 23:59 23:59 23:59 Intake Total 3250.00 / 3250.00 250 / 250 Output Total 450 / 450 600 / 600 Balance 2800.00 / 2800.00 -350 / -350 Lab / Micro Data 02/11/25 12:55 ROS Constitutional Constitutional: Denies chills, fatigue, fever(s), poor appetite or weakness Eyes Eyes: Denies blurry vision, change in vision, seeing flashes or spots in vision ENT HEENT: Denies dizziness, headache(s), loss taste/smell or sore throat Cardiovascular Cardiovascular: Denies chest pain, dizziness, dyspnea, irregular heart rhythm, palpitations or rapid heart rate Respiratory/Chest Respiratory/Chest: Denies chest tightness, cough, dyspnea or breast pain Gastrointestinal Gastrointestinal: Denies abdominal pain, constipation or vomiting Genitourinary Genitourinary: Denies dysuria or flank pain Musculoskeletal Musculoskeletal: Denies difficulty walking, joint pain, limited range of motion or numbness Neurologic Neurologic: Denies abnormal movements, abnormal speech, dizziness, numbness, seizure-like activity or syncope Psychiatric Psychiatric: Denies anxiety, behavioral changes, change in appetite, confusion, depression or suicidal thoughts Physical Exam Const alert, oriented x3 and no apparent distress General Appearance: cooperative and comfortable Resp normal respiratory effort Cardio regular rate GI normal to inspection, nondistended, normoactive bowel sounds GI Narrative: uterus is firm below umbilicus Palpation: soft Back/Spine no CVA tenderness and thoraco-lumbar ROM normal Extremity normal to inspection, no clubbing, cyanosis or edema, no calf tenderness and no pedal edema Psych mental status grossly normal, thought process normal, cooperative, affect normal, speech normal, activity/motor behavior normal, denies homicidal ideation and denies suicidal ideation Assessment & Plan (1) Vaginal delivery: COMMENT: JONNY MARY girl swapna 39 weeks (2) Active labor: PLAN: Plan s/p PPD # 1. routine post delivery care 2. breast feeding- support given 3. rh positive 4. rubella immune
[2025-02-13 08:50] VITALS: BP 115/75; PULSE 82; RESP 16; TEMP 36.9; O2SAT 95
--- NOTE | 2025-02-17 16:48 | NURSING ---
F/up phone call performed-- pt. actively pumping right now, but reports is in the NICU d/t seizures and a brain bleed. IBCLC offered encouragment and support. Pt. doing well otherwise, no s+s complications reported. Will call into [facility] if questions or concerns ever arise.
== END 2025-02-13 09:55 | disposition home or self-care (01) | DRG 806 ==
LOC: WPOUT 12:40 → WP 12:40
PROVIDERS: Admitting Provider Advanced Practice Midwife; Referring Provider Advanced Practice Midwife; Visit Provider Advanced Practice Midwife
DX: O76 Abnormality in fetal heart rate and rhythm complicating labor and delivery (principal); Z37.0 Single live birth; O99.43 Diseases of the circulatory system complicating the puerperium; I78.0 Hereditary hemorrhagic telangiectasia; O99.214 Obesity complicating childbirth; Z82.49 Family history of ischemic heart disease and other diseases of the circulatory system; O70.1 Second degree perineal laceration during delivery; Z3A.39 39 weeks gestation of pregnancy; O26.13 Low weight gain in pregnancy, third trimester; Z79.82 Long term (current) use of aspirin; O26.23 Pregnancy care for patient with recurrent pregnancy loss, third trimester; Z87.59 Personal history of other complications of pregnancy, childbirth and the puerperium
CPT/HCPCS: 59050; 85025; 86780; 86850; 86900; 86901; 99221; G0378; J2405